=== PATIENT | male | born 1950 | race Native Hawaiian/Other Pacific Islander ===

== ENCOUNTER 2018-11-30 04:54 | Emergency (ER) | payer MEDICARE ==
[2018-11-30 05:04] VITALS: BP 148/84; PULSE 59; RESP 16; TEMP 98.2
[2018-11-30] MEDS ORDERED: HYDROcodone/APAP 7.5-325MG 1 EACH TAB PO ONE (05:34)
[2018-11-30] MEDS ORDERED: AMOXIC-POT CLAV 875-125MG 1 EACH TAB PO STA (05:34)
[2018-11-30] MEDS ORDERED: IBUPROFEN 600 MG TAB PO STA (05:35)
[2018-11-30 06:15] LABS: Basophils # (A) 0.1 k/uL (0-0.2); Basophils % (A) 1 %; Eosinophils # (A) 0.3 k/uL (0-0.7); Eosinophils % (A) 2 %; HGB 14.6 gm/dL (13.0-17.5); Lymphocytes % (A) 9 %; MCH 33.4 pg (25.0-35.0); MCHC 32.5 g/dL (31.0-37.0); MCV 102.6 fL (80.0-100.0); Macrocytosis Slight; Monocytes # (A) 0.5 k/uL (0-1.0); Monocytes % (A) 5 %; Neutrophils # (A) 9.2 k/uL (1.3-7.7); Neutrophils % (A) 82 %; Platelet Count 245 k/uL (150-450); RBC 4.38 m/uL (4.30-5.90); RDW 12.7 % (11.5-15.5); WBC 11.2 k/uL (3.8-10.6)
[2018-11-30 06:25] LABS: Anion Gap 7 mmol/L; Blood Urea Nitrogen 16 mg/dL (9-20); Calcium 8.9 mg/dL (8.4-10.2); Carbon Dioxide 25 mmol/L (22-30); Chloride 110 mmol/L (98-107); Glucose 100 mg/dL (74-99); Potassium 4.2 mmol/L (3.5-5.1); Sodium 142 mmol/L (137-145)
--- NOTE | 2018-11-30 07:04 | CT ---
EXAM: CT Neck With Intravenous Contrast CLINICAL HISTORY: ITS.REASON CT Reason: Pain, abscess TECHNIQUE: Axial computed tomography images of the neck with intravenous contrast. CTDI is 5 mGy and DLP is 181 mGy-cm. This CT exam was performed using one or more of the following dose reduction techniques: automated exposure control, adjustment of the mA and/or kV according to patient size, and/or use of iterative reconstruction technique. COMPARISON: No relevant prior studies available. FINDINGS: 2.4 cm fluid collection overlying the left mandibular third molar which has periapical lucency and dehiscence overlying the outer cortex leading into this fluid collection. No tonsillar enlargement. Epiglottis is unremarkable. Aerodigestive tract is patent. No acute fracture. Upper lungs are unremarkable. IMPRESSION: Evidence of subperiosteal abscess overlying the left mandibular third molar which has underlying odontogenic disease.
[2018-11-30] MEDS ORDERED: LIDOCAINE 1% INJ 10MG/ML (20 ML MDV) SQ ONE (07:20)
--- NOTE | 2018-11-30 08:08 | ED ---
ENT HPI - General Chief complaint: Dental/Oral Stated complaint: Abcess Tooth Time Seen by Provider: 11/30/18 05:30 Source: patient, EMS Mode of arrival: EMS Limitations: no limitations - History of Present Illness Initial comments: This patient is 68-year-old man who presents to be evaluate for left mandible pain and swelling. The patient reports that he had onset of a toothache nearly one week ago. After a couple of days he also started developing swelling. He states that he attempted to see a dentist but they were not able to do anything because the amount of swelling he was having. He was started on antibiotic which she has taken for 3 days. He has had worsening despite this. He does not complain of any submandibular pain or swelling. No neck pain or swelling. He has not had systemic symptoms, no fever or chills, no chest pain, dyspnea or palpitations. MD complaint: tooth pain -: days(s) Severity: severe Quality: aching Consistency: constant Improves with: none Worsens with: eating Context- Dental: history of dental caries Associated Symptoms: gum swelling, toothache - Related Data Previous Rx's Medication Instructions Recorded Amoxicillin/Potassium Clav 1 tab PO Q12HR #14 tab 11/30/18 [Augmentin 875-125 Tablet] Hydrocodone/Acetaminophen [[place] 1 each PO Q6HR PRN #20 tab 11/30/18 5-325] Allergies Allergy/AdvReac Type Severity Reaction Status Date / Time No Known Allergies Allergy Verified 11/30/18 07:17 Review of Systems ROS Statement: Those systems with pertinent positive or pertinent negative responses have been documented in the HPI. ROS Other: All systems not noted in ROS Statement are negative. Constitutional: Denies: fever, chills, weakness ENT: Reports: dental pain. Denies: throat pain Respiratory: Denies: cough, dyspnea Cardiovascular: Denies: chest pain, palpitations, syncope Skin: Denies: rash Neurological: Denies: headache, weakness Past Medical History Past Medical History: No Reported History History of Any Multi-Drug Resistant Organisms: None Reported Past Surgical History: Hernia Repair Additional Past Surgical History / Comment(s): open reduction of right ankle fracture. Past Psychological History: No Psychological Hx Reported Smoking Status: Never smoker Past Alcohol Use History: None Reported Past Drug Use History: None Reported General Exam Limitations: no limitations General appearance: alert, in no apparent distress Head exam: Present: atraumatic, normocephalic Eye exam: Present: normal appearance, PERRL, EOMI. Absent: scleral icterus, conjunctival injection, periorbital swelling, periorbital tenderness ENT exam: Present: mucous membranes moist, other (Patient has moderate amount of swelling adjacent to the left side of the mandible. No sublingual or neck tenderness or swelling. Inspection REVEALS caries to the left posterior molar.) Neck exam: Present: normal inspection, full ROM. Absent: tenderness, meningismus, lymphadenopathy Respiratory exam: Present: normal lung sounds bilaterally. Absent: respiratory distress, wheezes, rales, rhonchi, stridor Cardiovascular Exam: Present: regular rate, normal rhythm, normal heart sounds. Absent: systolic murmur, diastolic murmur, rubs, gallop Back exam: Present: normal inspection. Absent: CVA tenderness (R), CVA tenderness (L) Neurological exam: Present: alert Skin exam: Present: warm, dry, intact, normal color. Absent: rash Course Vital Signs 11/30/18 05:00 Temperature 98.2 F Pulse Rate 59 L Respiratory 16 Rate Blood Pressure 148/84 O2 Sat by Pulse 97 Oximetry Medical Decision Making - Medical Decision Making Patient's 68-year-old man with left mandibular pain and what appears to be developing dental abscess. Given the degree of mandibular swelling also checked a computed tomography scan to rule out evidence of developing Quique's angina. We are not seeing any of that currently. After discussion of risks, benefits, and indications, patient does give verbal consent to have I&D of the dental abscess. I performed a mandibular block using 1 mL of 1% lidocaine without epinephrine. I also did inject a small amount at the apex of the abscess. Following that a small stab incision was made with #11 scalpel with resulting in drainage of purulent material as well as small amount of blood. I did apply a small amount of pressure to milk further pus from the abscess, following this patient instructed to swish and spit with saline. Appropriate further care and follow-up discussed was return parameters. - Lab Data Result diagrams: 11/30/18 05:47 11/30/18 05:47 Lab Results 11/30/18 11/30/18 Range/Units 05:47 05:47 WBC 11.2 H (3.8-10.6) k/uL RBC 4.38 (4.30-5.90) m/uL Hgb 14.6 (13.0-17.5) gm/dL Hct 45.0 (39.0-53.0) % MCV 102.6 H (80.0-100.0) fL MCH 33.4 (25.0-35.0) pg MCHC 32.5 (31.0-37.0) g/dL RDW 12.7 (11.5-15.5) % Plt Count 245 (150-450) k/uL Neutrophils % 82 % Lymphocytes % 9 % Monocytes % 5 % Eosinophils % 2 % Basophils % 1 % Neutrophils # 9.2 H (1.3-7.7) k/uL Lymphocytes # 1.0 (1.0-4.8) k/uL Monocytes # 0.5 (0-1.0) k/uL Eosinophils # 0.3 (0-0.7) k/uL Basophils # 0.1 (0-0.2) k/uL Macrocytosis Slight Sodium 142 (137-145) mmol/L Potassium 4.2 (3.5-5.1) mmol/L Chloride 110 H (98-107) mmol/L Carbon Dioxide 25 (22-30) mmol/L Anion Gap 7 mmol/L BUN 16 (9-20) mg/dL Creatinine 0.84 (0.66-1.25) mg/dL Est GFR (CKD-EPI)AfAm >90 (>60 ml/min/1.73 sqM) Est GFR (CKD-EPI)NonAf 89 (>60 ml/min/1.73 sqM) Glucose 100 H (74-99) mg/dL Calcium 8.9 (8.4-10.2) mg/dL Disposition Clinical Impression: Dental abscess Disposition: HOME SELF-CARE Condition: Fair Instructions (If sedation given, give patient instructions): Dental Abscess (ED ) Prescriptions: Amoxicillin/Potassium Clav [Augmentin 875-125 Tablet] 1 tab PO Q12HR #14 tab Hydrocodone/Acetaminophen [[place] 5-325] 1 each PO Q6HR PRN #20 tab PRN Reason: Pain Is patient prescribed a controlled substance at d/c from ED?: No Referrals: None,Stated [Primary Care Provider] - 1-2 days Kenny Mosley DDS [STAFF PHYSICIAN] - 1-2 days
== END 2018-11-30 08:29 | disposition home or self-care (01) ==
LOC: EC 04:54
DX: K04.7 Periapical abscess without sinus (principal)
CPT/HCPCS: 36415; 80048; 85025; 70491; 99284; 41800; J2001; Q9967

== ENCOUNTER 2020-05-19 10:09 | Emergency (ER) | payer MEDICARE ==
[2020-05-19 10:24] VITALS: BP 124/74; PULSE 64; RESP 18; TEMP 98.3
[2020-05-19] MEDS ORDERED: AMOXIC-POT CLAV 875MG STARTER PACK 2 TAB BTL PO STA (10:29)
[2020-05-19] MEDS ORDERED: ACET/COD 300 MG/30 MG STARTER PACK 6 TAB BTL PO STA (10:29)
--- NOTE | 2020-05-19 10:30 | ED ---
ENT HPI - General Chief complaint: Dental/Oral Stated complaint: dental pain Time Seen by Provider: 05/19/20 10:25 Source: patient Mode of arrival: ambulatory Limitations: no limitations - History of Present Illness Initial comments: 30-year-old male presenting for left lower dental pain. Patient states he has had a cracked tooth and is beginning to hurt. Patient denies any facial swelling Syble Tung T bruising or swelling denies chills general malaise or fevers. Patient states he does not currently have a primary care provider and does not know to do straight came to the emergency department. Patient is no additional complaints he appears well on arrival nontoxic in no acute distress. Very pleasant. - Related Data Previous Rx's Medication Instructions Recorded Amoxicillin/Potassium Clav 1 tab PO Q12HR #14 tab 11/30/18 [Augmentin 875-125 Tablet] Hydrocodone/Acetaminophen [[place] 1 each PO Q6HR PRN #20 tab 11/30/18 5-325] Amoxicillin/Potassium Clav 1 tab PO Q12HR 7 Days #14 tab 05/19/20 [Augmentin 875-125 Tablet] Allergies Allergy/AdvReac Type Severity Reaction Status Date / Time No Known Allergies Allergy Verified 11/30/18 07:17 Review of Systems ROS Statement: Those systems with pertinent positive or pertinent negative responses have been documented in the HPI. ROS Other: All systems not noted in ROS Statement are negative. Past Medical History Past Medical History: No Reported History History of Any Multi-Drug Resistant Organisms: None Reported Past Surgical History: Hernia Repair Additional Past Surgical History / Comment(s): open reduction of right ankle fracture. Past Psychological History: No Psychological Hx Reported Smoking Status: Never smoker Past Alcohol Use History: None Reported Past Drug Use History: None Reported General Exam - General Exam Comments Initial Comments: General: The patient is awake and alert, in no distress, and does not appear acutely ill. Eye: Pupils are equal, round and reactive to light, extra-ocular movements are intact. No nystagmus. There is normal conjunctiva bilaterally. No signs of icterus. Ears, nose, mouth and throat: There are moist mucous membranes and no oral lesions. No swelling of the jaw, face, adjacent mucosa or gingiva. NO swelling below tongue or angle of mandible. cracked tooth #19 Neck: The neck is supple, there is no tenderness or JVD. Musculoskeletal: Normal ROM, no tenderness. Strength 5/5. Sensation intact. Pulses equal bilaterally 2+. Neurological: A&O x 3. CN II-XII intact grossly, There are no obvious motor or sensory deficits. Coordination appears grossly intact. Speech is normal. Skin: Skin is warm and dry and no rashes or lesions are noted. Psychiatric: Cooperative, appropriate mood & affect, normal judgment. Limitations: no limitations Course Vital Signs 05/19/20 10:22 Temperature 98.3 F Pulse Rate 64 Respiratory 18 Rate Blood Pressure 124/74 O2 Sat by Pulse 98 Oximetry Medical Decision Making - Medical Decision Making 70-year-old male presenting today for chief complaint of dental pain cracked tooth. No evidence of abscess. No evidence of Quique's angina. Patient will be discharged with Tylenol 3 and Augmentin he is to follow-up with dentistry discussed a local dentist office in [facility] that is free reduced services. Patient is to follow-up with [facility] patient is agreeable to this care plan discharge at this time. Disposition Clinical Impression: Pain, dental Disposition: HOME SELF-CARE Condition: Good Instructions (If sedation given, give patient instructions): Toothache (ED) Additional Instructions: Please use medication as discussed. Please follow-up with dentist as discussed. Please return to emergency room if the symptoms increase or worsen or for any other concerns. Prescriptions: Amoxicillin/Potassium Clav [Augmentin 875-125 Tablet] 1 tab PO Q12HR 7 Days #14 tab Is patient prescribed a controlled substance at d/c from ED?: No Referrals: None,Stated [Primary Care Provider] - 1-2 days [facility] [NON-STAFF] - 1-2 days Time of Disposition: 10:30
== END 2020-05-19 10:48 | disposition home or self-care (01) ==
LOC: EC 10:09
DX: K08.89 Other specified disorders of teeth and supporting structures (principal); K03.81 Cracked tooth
CPT/HCPCS: 99282

== ENCOUNTER 2020-08-10 11:50 | Emergency (ER) | payer MEDICARE ==
[2020-08-10 11:57] VITALS: RESP 18
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
--- NOTE | 2020-08-10 13:01 | CT ---
EXAMINATION TYPE: CT brain [place] wo con DATE OF EXAM: 08/10/2020 COMPARISON: NONE HISTORY: Fall injury with pain Automated Exposure Control for Dose Reduction was Utilized. TECHNIQUE: CT scan of the head and cervical spine are performed without contrast. FINDINGS: There is no acute intracranial hemorrhage or midline shift identified. Mild ventricular a nd sulcal prominence. The calvarium is intact. Ramos-white matter differentiation is maintained. The globes are intact and the visualized sinuses are clear. Cervical spine is visualized in its entirety from C1 through upper thoracic levels and demonstrates s light levoconvex scoliotic curvature without evidence of acute fracture or dislocation. There is grad e 1 anterolisthesis C3 on C4 Prevertebral soft tissue appears within normal limits. The C1-C2 artic ulation is within normal limits on the coronal images. Vertebral body heights are maintained. Mild t o moderate disc space narrowing and anterior spurring C3-C4 level. Severe disc space narrowing and mo derate spurring C5-C6 level. Moderate disc space narrowing and moderate spurring C6-C7 level. Posteri or spur disc complex effaces the anterior thecal sac at C6-C7 level. Axial images show multilevel unc overtebral facet degenerative changes contributing to multilevel neural foraminal narrowing with find ings noted bilaterally at C3-C4 level. Lung apices show no pneumothorax. IMPRESSION: 1. There is no acute fracture or dislocation evident in the cervical spine. 2. No acute intracranial hemorrhage or midline shift is seen.
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
[2020-08-10] MEDS ORDERED: CYCLOBENZAPRINE 10MG STARTER 3 TAB BTL PO STA (13:39)
[2020-08-10] MEDS ORDERED: IBUPROFEN 600 MG STARTER PACK 4 TAB BTL PO STA (13:39)
[2020-08-10 14:13] VITALS: BP 118/78; PULSE 60; TEMP 98.3
== END 2020-08-10 14:12 | disposition home or self-care (01) ==
LOC: EC 11:50
DX: S46.002A Unspecified injury of muscle(s) and tendon(s) of the rotator cuff of left shoulder, initial encounter (principal); V19.9XXA Pedal cyclist (driver) (passenger) injured in unspecified traffic accident, initial encounter; Y92.480 Sidewalk as the place of occurrence of the external cause; Y93.55 Activity, bike riding
CPT/HCPCS: 70450; 72125; 99284

== ENCOUNTER 2020-11-03 17:50 | Emergency (ER) | payer MEDICARE, OTHER ==
[2020-11-03 17:55] VITALS: BP 160/86; PULSE 63; RESP 18; TEMP 98.4
--- NOTE | 2020-11-03 18:15 | ED ---
Male Urogenital HPI - General Chief complaint: Urogenital Stated complaint: Hernia Time Seen by Provider: 11/03/20 17:56 Source: patient Mode of arrival: ambulatory Limitations: no limitations - History of Present Illness Initial comments: 70-year-old male presents emergency Department with a chief complaint of a hernia. Reports bilateral inguinal hernia repair many years ago but the left one has slowly deteriorated. Patient reports over the last 8 months he has noticed more discomfort in the left side and a bulge. Patient states the bulge is to come and go but now it is consistently staying there. He denies any constipation, nausea or vomiting. He denies any testicular pain or difficulty urinating. - Related Data Home Medications Medication Instructions Recorded Confirmed No Known Home Medications 11/03/20 11/03/20 Allergies Allergy/AdvReac Type Severity Reaction Status Date / Time No Known Allergies Allergy Verified 11/03/20 18:44 Review of Systems ROS Statement: Those systems with pertinent positive or pertinent negative responses have been documented in the HPI. ROS Other: All systems not noted in ROS Statement are negative. Past Medical History Past Medical History: No Reported History History of Any Multi-Drug Resistant Organisms: None Reported Past Surgical History: Hernia Repair Additional Past Surgical History / Comment(s): open reduction of right ankle fracture. Past Psychological History: No Psychological Hx Reported Smoking Status: Current some day smoker Past Alcohol Use History: None Reported Past Drug Use History: None Reported General Exam Limitations: no limitations General appearance: alert, in no apparent distress Head exam: Present: atraumatic, normocephalic, normal inspection Eye exam: Present: normal appearance, PERRL, EOMI Pupils: Present: normal accommodation ENT exam: Present: normal exam, normal oropharynx, mucous membranes moist Neck exam: Present: normal inspection, full ROM. Absent: tenderness Respiratory exam: Present: normal lung sounds bilaterally. Absent: respiratory distress, wheezes, rales, rhonchi, stridor Cardiovascular Exam: Present: regular rate, normal rhythm, normal heart sounds GI/Abdominal exam: Present: soft, tenderness (Mild tenderness), hernia (Large left-sided inguinal hernia). Absent: distended exam: Absent: normal inspection (Large left-sided inguinal hernia) Extremities exam: Present: normal inspection, full ROM, normal capillary refill. Absent: tenderness, pedal edema, joint swelling Back exam: Present: normal inspection, full ROM. Absent: tenderness, CVA tenderness (R), CVA tenderness (L) Neurological exam: Present: alert, oriented X3 Psychiatric exam: Present: normal affect, normal mood Skin exam: Present: warm, dry, intact, normal color Course Vital Signs 11/03/20 17:51 Temperature 98.4 F Pulse Rate 63 Respiratory 18 Rate Blood Pressure 160/86 O2 Sat by Pulse 99 Oximetry Medical Decision Making - Medical Decision Making 70-year-old male presenting to the emergency Department the chief complaint of hernia. On physical examination, patient has left-sided large inguinal hernia. CBC unremarkable. CMP reveals slight elevation of BUN at 22. CT of the abdomen and pelvis with contrast reveals a large left-sided internal hernia with sigmoid colon incarceration. No strangulation. Patient was given morphine and Zofran for discomfort. I was able to reduce the hernia. I contacted regarding this case and will see the patient in his office. Information was discussed with the patient. Return parameters were thoroughly discussed the patient was worsening agreeable. Case discussed with physician. - Lab Data Result diagrams: 11/03/20 18:34 11/03/20 18:34 Lab Results 11/03/20 11/03/20 11/03/20 Range/Units 18:34 18:34 18:34 WBC 8.3 (3.8-10.6) k/uL RBC 4.90 (4.30-5.90) m/uL Hgb 17.1 (13.0-17.5) gm/dL Hct 48.2 (39.0-53.0) % MCV 98.5 (80.0-100.0) fL MCH 34.9 (25.0-35.0) pg MCHC 35.4 (31.0-37.0) g/dL RDW 12.8 (11.5-15.5) % Plt Count 211 (150-450) k/uL MPV 7.3 Neutrophils % 81 % Lymphocytes % 11 % Monocytes % 5 % Eosinophils % 2 % Basophils % 1 % Neutrophils # 6.7 (1.3-7.7) k/uL Lymphocytes # 0.9 L (1.0-4.8) k/uL Monocytes # 0.4 (0-1.0) k/uL Eosinophils # 0.2 (0-0.7) k/uL Basophils # 0.1 (0-0.2) k/uL Sodium 141 (137-145) mmol/L Potassium 4.0 (3.5-5.1) mmol/L Chloride 109 H (98-107) mmol/L Carbon Dioxide 26 (22-30) mmol/L Anion Gap 6 mmol/L BUN 22 H (9-20) mg/dL Creatinine 0.79 (0.66-1.25) mg/dL Est GFR (CKD-EPI)AfAm >90 (>60 ml/min/1.73 sqM) Est GFR (CKD-EPI)NonAf >90 (>60 ml/min/1.73 sqM) Glucose 103 H (74-99) mg/dL Plasma Lactic Acid Jimbo 0.8 (0.7-2.0) mmol/L Calcium 9.3 (8.4-10.2) mg/dL Total Bilirubin 0.5 (0.2-1.3) mg/dL AST 25 (17-59) U/L ALT 19 (4-49) U/L Alkaline Phosphatase 87 (38-126) U/L Total Protein 7.5 (6.3-8.2) g/dL Albumin 4.2 (3.5-5.0) g/dL Disposition Clinical Impression: Reducible left inguinal hernia Disposition: HOME SELF-CARE Condition: Stable Instructions (If sedation given, give patient instructions): Inguinal Hernia (ED) Additional Instructions: Follow-up with . Please return to the Emergency Department if symptoms worsen or any other concerns. Avoid lifting heavy objects, squatting or straining. Is patient prescribed a controlled substance at d/c from ED?: No Referrals: None,Stated [Primary Care Provider] - 1-2 days Sherie Junior DO [Doctor of Osteopathic Medicine] - 1-2 days Time of Disposition: 20:27
[2020-11-03 18:48] LABS: Basophils # (A) 0.1 k/uL (0-0.2); Basophils % (A) 1 %; Eosinophils # (A) 0.2 k/uL (0-0.7); Eosinophils % (A) 2 %; HCT 48.2 % (39.0-53.0); HGB 17.1 gm/dL (13.0-17.5); Lymphocytes # (A) 0.9 k/uL (1.0-4.8); Lymphocytes % (A) 11 %; MCH 34.9 pg (25.0-35.0); MCHC 35.4 g/dL (31.0-37.0); MCV 98.5 fL (80.0-100.0); Mean Platelet Volume 7.3; Monocytes # (A) 0.4 k/uL (0-1.0); Monocytes % (A) 5 %; Neutrophils # (A) 6.7 k/uL (1.3-7.7); Neutrophils % (A) 81 %; Platelet Count 211 k/uL (150-450); RDW 12.8 % (11.5-15.5); WBC 8.3 k/uL (3.8-10.6)
[2020-11-03 18:56] LABS: ALT 19 U/L (4-49); AST 25 U/L (17-59); African American GFR (CKD) >90 (>60 ml/min/1.73 sqM); Albumin 4.2 g/dL (3.5-5.0); Alkaline Phosphatase 87 U/L (38-126); Anion Gap 6 mmol/L; Blood Urea Nitrogen 22 mg/dL (9-20); Calcium 9.3 mg/dL (8.4-10.2); Carbon Dioxide 26 mmol/L (22-30); Chloride 109 mmol/L (98-107); Glucose 103 mg/dL (74-99); Non-African American GFR(CKD) >90 (>60 ml/min/1.73 sqM); Sodium 141 mmol/L (137-145); Total Bilirubin 0.5 mg/dL (0.2-1.3); Total Protein 7.5 g/dL (6.3-8.2)
--- NOTE | 2020-11-03 19:33 | CT ---
EXAMINATION TYPE: CT abdomen pelvis w con DATE OF EXAM: 11/03/2020 COMPARISON: None HISTORY: Left inguinal hernia x6 months. CT DLP: 573.6 mGycm Automated exposure control for dose reduction was used. CONTRAST: Performed with IV Contrast, patient injected with 100ml mL of Isovue 300. Images were obtained from the diaphragm to the floor the pelvis with IV contrast. The lung bases are clear. There is no pleural effusion. Heart size is normal. There is no pericardial effusion. Liver spleen stomach pancreas gallbladder appear intact. Bile ducts are not dilated. There is no adrenal mass. Kidneys show satisfactory contrast opacification. There is no hydronephrosi s. Delayed images show normal renal excretion. There is 2 cm cortical cyst medial right kidney. There are small cortical cysts in the left kidney. There is no retroperitoneal adenopathy. Ureters are not dilated. Bladder distends smoothly. There is large left side inguinal and scrotal hernia that contains incarcerated sigmoid colon. Hernia measures 16 cm in length and 7 cm in diameter. There is 1.7 cm rounded fluid density at the right in guinal ligament that could be small hernia. I do not see evidence for mechanical bowel obstruction. There is no free air. There is no ascites. Th ere is no mesenteric edema. There is normal alignment of the lumbar vertebra. There is moderate L4-5 disc space narrowing. There is no compression fracture. Bony pelvis is intact. The hip joints are intact. IMPRESSION: Large left inguinal and scrotal hernia as above with incarcerated sigmoid colon. No bowel obstruction .
[2020-11-03] MEDS ORDERED: MORPHINE SULFATE 4 MG/ML SYRINGE IVP STA (19:39)
[2020-11-03] MEDS ORDERED: ONDANSETRON 4 MG/2 ML VIAL IVP STA (19:45)
== END 2020-11-03 20:53 | disposition home or self-care (01) ==
LOC: EC 17:50
DX: K40.30 Unilateral inguinal hernia, with obstruction, without gangrene, not specified as recurrent (principal); F17.200 Nicotine dependence, unspecified, uncomplicated
CPT/HCPCS: 36415; 80053; 83605; 85025; 74177; 99284; 96374; 96375; J2270; J2405; Q9967

== ENCOUNTER → 2021-03-24 | Outpatient (CLI) | payer MEDICARE, OTHER ==
--- NOTE | 2021-03-24 12:31 | XR ---
EXAMINATION TYPE: XR shoulder complete BILAT DATE OF EXAM: 03/24/2021 CLINICAL HISTORY: Bilateral shoulder pain TECHNIQUE: Three views of the bilateral shoulder are obtained. COMPARISON: None. FINDINGS: There is no acute fracture/dislocation evident. There are degenerative changes of the bila teral acromioclavicular and glenohumeral joints. The right humeral head is high riding with degenerat ren changes at the pseudoarticulation of the humeral head with the acromion. IMPRESSION: There are degenerative changes of the bilateral acromioclavicular and glenohumeral joints. The right humeral head is high riding with degenerative changes at the pseudoarticulation of the humeral head w ith the acromion.
== END | disposition home or self-care (01) ==
LOC: RADXRMAIN 10:45
PROVIDERS: ATTEND Internal Medicine
DX: M19.011 Primary osteoarthritis, right shoulder (principal); M19.012 Primary osteoarthritis, left shoulder

== ENCOUNTER 2021-10-02 19:55 | Emergency (ER) | payer OTHER ==
[2021-10-02 20:05] VITALS: BP 214/87; PULSE 69; RESP 18; TEMP 98.9
[2021-10-02] MEDS ORDERED: DOXYCYCLINE 100 MG CAP PO STA (20:58)
[2021-10-02] MEDS ORDERED: cefTRIAXone 500 MG VIAL IM ONE (21:15)
--- NOTE | 2021-10-02 22:24 | ED ---
General Adult HPI - General Chief complaint: Recheck/Abnormal Lab/Rx Stated complaint: Wants covid screening,and STD screening Time Seen by Provider: 10/02/21 20:00 Source: patient Mode of arrival: ambulatory Limitations: no limitations - History of Present Illness Initial comments: 71-year-old male presents to the emergency department requesting Covid and STD testing. He states that he had a one night stand and was concerned for STI's as well as Covid after his unprotected intercourse. States that he has no symptoms at this time. Denies any chest pain, shortness of breath, fevers, chills, muscle aches, nausea or vomiting. Denies penile drainage. No dysuria, hematuria or difficulty voiding. No rashes. Denies any testicular pain. No other alleviating, precipitating or modifying factors - Related Data Previous Rx's Medication Instructions Recorded Doxycycline Hyclate 100 mg PO Q12H 1 Days #14 tab 10/02/21 Allergies Allergy/AdvReac Type Severity Reaction Status Date / Time No Known Allergies Allergy Verified 10/02/21 20:05 Review of Systems ROS Statement: Those systems with pertinent positive or pertinent negative responses have been documented in the HPI. ROS Other: All systems not noted in ROS Statement are negative. Past Medical History Past Medical History: No Reported History History of Any Multi-Drug Resistant Organisms: None Reported Past Surgical History: Hernia Repair Additional Past Surgical History / Comment(s): open reduction of right ankle fracture. Past Psychological History: No Psychological Hx Reported Smoking Status: Current some day smoker Past Alcohol Use History: None Reported Past Drug Use History: None Reported General Exam Limitations: no limitations General appearance: alert, in no apparent distress Head exam: Present: atraumatic, normocephalic, normal inspection Eye exam: Present: normal appearance, PERRL, EOMI. Absent: scleral icterus, conjunctival injection, periorbital swelling ENT exam: Present: normal exam, mucous membranes moist Neck exam: Present: normal inspection. Absent: tenderness, meningismus, lymphadenopathy Respiratory exam: Present: normal lung sounds bilaterally. Absent: respiratory distress, wheezes, rales, rhonchi, stridor Cardiovascular Exam: Present: regular rate, normal rhythm, normal heart sounds. Absent: systolic murmur, diastolic murmur, rubs, gallop, clicks GI/Abdominal exam: Present: soft, normal bowel sounds. Absent: distended, tenderness, guarding, rebound, rigid Extremities exam: Present: normal inspection, full ROM, normal capillary refill. Absent: tenderness, pedal edema, joint swelling, calf tenderness Back exam: Present: normal inspection Neurological exam: Present: alert, oriented X3, CN II-XII intact Psychiatric exam: Present: normal affect, normal mood Skin exam: Present: warm, dry, intact, normal color. Absent: rash Course Vital Signs 10/02/21 20:01 Temperature 98.9 F Pulse Rate 69 Respiratory 18 Rate Blood Pressure 214/87 O2 Sat by Pulse 98 Oximetry Medical Decision Making - Medical Decision Making On arrival patient was placed in the hallway 11. A thorough history and p hysical exam was performed. Patient does provide a urine sample. He does opt for treatment for chlamydia and gonorrhea. Given 500 IM injection of Rocephin and days of doxycycline. First dose given in the emergency room. Covid testing is negative. Instructed if he has any symptoms in the next 2 days that he be retested. Also informed that we need to await the results of his STI testing. As the patient has any new or worsening symptoms he should return to the emergency room. Patient agreed to the treatment plan and was discharged home in stable condition - Lab Data Lab Results 10/02/21 10/02/21 10/02/21 Range/Units 21:08 21:40 21:40 Chlamydia Source Urine Chlamydia DNA (PCR) Negative (Neg,Equiv) Coronavirus (PCR) Not Detected (Not Detectd) N. gonorrhoeae Source Urine N.gonorrhoeae DNA Probe Negative (Neg,Equiv) Miscellaneous Test Trichomonas RNA Misc Test Result See Comment Disposition Clinical Impression: Exposure to COVID-19 virus, Unprotected sexual intercourse Disposition: HOME SELF-CARE Condition: Stable Instructions (If sedation given, give patient instructions): Safe Sex (ED) Additional Instructions: We will call you if your results are positive for chlamydia or gonorrhea however you have already been treated. If you request testing for HIV or hepatitis, you need to go to the health Department. Please return for any new or worsening symptoms. Prescriptions: Doxycycline Hyclate 100 mg PO Q12H 1 Days #14 tab Is patient prescribed a controlled substance at d/c from ED?: No Referrals: Elham Sargent MD [Primary Care Provider] - 1-2 days [facility] [NON-STAFF] - 1-2 days Time of Disposition: 22:22
[2021-10-04 10:46] LABS: C. trachomatis,PCR Negative (Neg,Equiv); Chlamydia trachomatis Source Urine; N. gonorrhoeae,PCR Negative (Neg,Equiv); Neisseria Source Urine
== END 2021-10-02 22:42 | disposition home or self-care (01) ==
LOC: EC 19:55
DX: Z20.822 Contact with and (suspected) exposure to COVID-19 (principal); Z11.3 Encounter for screening for infections with a predominantly sexual mode of transmission; F17.200 Nicotine dependence, unspecified, uncomplicated
CPT/HCPCS: 87491; 87591; 87661; 87635; 99282; 96372; J0696

== ENCOUNTER 2022-01-12 11:14 | Emergency (ER) | payer OTHER ==
[2022-01-12 11:37] VITALS: BP 192/83; PULSE 65; RESP 18; TEMP 98.2
--- NOTE | 2022-01-12 11:57 | ED ---
General Adult HPI - General Chief complaint: Urogenital Stated complaint: STD check Time Seen by Provider: 01/12/22 11:39 Source: patient, RN notes reviewed Mode of arrival: ambulatory Limitations: no limitations - History of Present Illness Initial comments: This a 71-year-old male presents emergency Department with chief complaint of possible STD. Patient states that he had unprotected sex of recent in he just believes he may have something. He states is more psychological. He has no physical symptoms denies having dysuria, urinary discharge, abdominal discomfort. Patient has no history. - Related Data Previous Rx's Medication Instructions Recorded Doxycycline Hyclate 100 mg PO Q12H 1 Days #14 tab 10/02/21 Allergies Allergy/AdvReac Type Severity Reaction Status Date / Time No Known Allergies Allergy Verified 01/12/22 11:37 Review of Systems ROS Statement: Those systems with pertinent positive or pertinent negative responses have been documented in the HPI. ROS Other: All systems not noted in ROS Statement are negative. Past Medical History Past Medical History: No Reported History History of Any Multi-Drug Resistant Organisms: None Reported Past Surgical History: Hernia Repair Additional Past Surgical History / Comment(s): open reduction of right ankle fracture. Past Psychological History: No Psychological Hx Reported Smoking Status: Current some day smoker Past Alcohol Use History: None Reported Past Drug Use History: None Reported General Exam Limitations: no limitations General appearance: alert, in no apparent distress Head exam: Present: atraumatic, normocephalic, normal inspection Respiratory exam: Present: normal lung sounds bilaterally. Absent: respiratory distress, wheezes, rales, rhonchi, stridor Cardiovascular Exam: Present: regular rate, normal rhythm, normal heart sounds. Absent: systolic murmur, diastolic murmur, rubs, gallop, clicks GI/Abdominal exam: Present: soft, normal bowel sounds. Absent: distended, tenderness, guarding, rebound, rigid Course Vital Signs 01/12/22 11:34 Temperature 98.2 F Pulse Rate 65 Respiratory 18 Rate Blood Pressure 192/83 O2 Sat by Pulse 98 Oximetry Medical Decision Making - Medical Decision Making [id number] presented for concerns for STD. Patient did have urinalysis which was unremarkable. Patient we notified of any positive results for his chlamydia, Trichomonas, gonorrhea. - Lab Data Lab Results 01/12/22 Range/Units 11:55 Urine Color Light Yellow Urine Appearance Clear (Clear) Urine pH 7.5 (5.0-8.0) Ur Specific [place] 1.014 (1.001-1.035) Urine Protein Negative (Negative) Urine Glucose (UA) Negative (Negative) Urine Ketones Negative (Negative) Urine Blood Negative (Negative) Urine Nitrite Negative (Negative) Urine Bilirubin Negative (Negative) Urine Urobilinogen <2.0 (<2.0) mg/dL Ur Leukocyte Esterase Negative (Negative) Disposition Clinical Impression: Concern about STD in male without diagnosis Disposition: HOME SELF-CARE Condition: Stable Instructions (If sedation given, give patient instructions): Sexually Transmitted Diseases (ED) Additional Instructions: Please return to the Emergency Department if symptoms worsen or any other concerns. Is patient prescribed a controlled substance at d/c from ED?: No Referrals: Elham Sargent MD [Primary Care Provider] - 1-2 days Time of Disposition: 12:27
[2022-01-12 12:11] LABS: Appearance,Urine Clear (Clear); Bilirubin,Urine Negative (Negative); Blood,Urine Negative (Negative); Color,Urine Light Yellow; Glucose,Urine (UA) Negative (Negative); Ketones,Urine Negative (Negative); Leukocyte Esterase,Urine Negative (Negative); Nitrite,Urine Negative (Negative); PH, Urine 7.5 (5.0-8.0); Protein,Urine Negative (Negative); Specific Gravity,Urine 1.014 (1.001-1.035); Urobilinogen,Urine <2.0 mg/dL (<2.0)
[2022-01-13 13:59] LABS: C. trachomatis,PCR Negative (Neg,Equiv); Chlamydia trachomatis Source Urine
[2022-01-13 14:15] LABS: N. gonorrhoeae,PCR Negative (Neg,Equiv); Neisseria Source Urine
== END 2022-01-12 13:15 | disposition home or self-care (01) ==
LOC: EC 11:14
DX: Z11.3 Encounter for screening for infections with a predominantly sexual mode of transmission (principal); F17.200 Nicotine dependence, unspecified, uncomplicated
CPT/HCPCS: 81003; 87491; 87591; 87661; 99282

== ENCOUNTER 2022-05-08 09:57 | Emergency (ER) | payer OTHER ==
[2022-05-08 10:02] VITALS: BP 136/82; PULSE 57; RESP 18; TEMP 98.2
--- NOTE | 2022-05-08 10:16 | ED ---
Male Urogenital HPI - General Chief complaint: Urogenital Stated complaint: Urogenital Time Seen by Provider: 05/08/22 10:04 Source: patient, RN notes reviewed, old records reviewed Mode of arrival: ambulatory Limitations: no limitations - History of Present Illness Initial comments: This is a well-appearing 72-year-old male presents ambulatory to the emergency room with dysuria for 2 days. Patient states he had a new sexual partner last Wednesday who stated that she may have a sexually transmitted infection. Patient denies any fevers, no abdominal pain, no testicular pain, no penile discharge. He states it may be psychological but he wants to be treated just in case. MD Complaint: dysuria -: days(s) (2) Severity scale (1-10): 0 Consistency: intermittent Worsens with: urination new sexual partner Reports: denies other symptoms - Related Data Sexually active: Yes Previous Rx's Medication Instructions Recorded Doxycycline Hyclate 100 mg PO Q12H 1 Days #14 tab 10/02/21 Allergies Allergy/AdvReac Type Severity Reaction Status Date / Time No Known Allergies Allergy Verified 05/08/22 10:02 Review of Systems ROS Statement: Those systems with pertinent positive or pertinent negative responses have been documented in the HPI. ROS Other: All systems not noted in ROS Statement are negative. Past Medical History Past Medical History: No Reported History History of Any Multi-Drug Resistant Organisms: None Reported Past Surgical History: Hernia Repair Additional Past Surgical History / Comment(s): open reduction of right ankle fracture. Past Psychological History: No Psychological Hx Reported Smoking Status: Current some day smoker Past Alcohol Use History: Occasional Past Drug Use History: None Reported General Exam Limitations: no limitations General appearance: alert, in no apparent distress Head exam: Present: atraumatic Eye exam: Present: PERRL. Absent: scleral icterus, conjunctival injection, per iorbital swelling ENT exam: Present: normal oropharynx, mucous membranes moist Neck exam: Absent: meningismus Respiratory exam: Present: normal lung sounds bilaterally. Absent: respiratory distress, accessory muscle use Cardiovascular Exam: Present: bradycardia GI/Abdominal exam: Present: soft exam: Present: other (Patient declined genital exam) Extremities exam: Present: normal capillary refill. Absent: pedal edema Neurological exam: Present: alert, oriented X3, normal gait Psychiatric exam: Present: normal affect, normal mood Skin exam: Present: warm, dry, normal color. Absent: cyanosis, diaphoretic, petechiae, pallor Course Vital Signs 05/08/22 09:59 Temperature 98.2 F Pulse Rate 57 L Respiratory 18 Rate Blood Pressure 136/82 O2 Sat by Pulse 96 Oximetry Medical Decision Making - Medical Decision Making Patient presents with 2 days of dysuria. No penile discharge. States symptoms started 2 days ago. He did have unprotected vaginal sex with a new partner last Wednesday who stated she may have an STI. Patient was treated prophylactically as requested for STI exposure. Urinalysis negative for infection. Cultures were sent. Patient was advised to practice safe sex and wear a condom until results are back. Instructed to return to the emergency room with any new or concerning symptoms. Patient's questions were answered and he is agreeable to this plan of care. Case discussed with Dr. Contreras - Lab Data Lab Results 05/08/22 Range/Units 10:22 Urine Color Yellow Urine Appearance Clear (Clear) Urine pH 7.0 (5.0-8.0) Ur Specific [place] 1.014 (1.001-1.035) Urine Protein Negative (Negative) Urine Glucose (UA) Negative (Negative) Urine Ketones Negative (Negative) Urine Blood Negative (Negative) Urine Nitrite Negative (Negative) Urine Bilirubin Negative (Negative) Urine Urobilinogen <2.0 (<2.0) mg/dL Ur Leukocyte Esterase Negative (Negative) Disposition Clinical Impression: Dysuria Disposition: HOME SELF-CARE Condition: Good Instructions (If sedation given, give patient instructions): Sexually Transmitted Diseases (ED), Male Condom Use (ED), Safe Sex Practices (ED) Additional Instructions: Practice safe sex and wear a condom all the time especially until results are back and negative for infection. Return to the emergency room with any new or concerning symptoms. Avoid alcoholic beverages for 3 days after taking Flagyl today to prevent abdominal pain and vomiting. Is patient prescribed a controlled substance at d/c from ED?: No Referrals: Elham Sargent MD [Primary Care Provider] - 1-2 days Time of Disposition: 10:42
[2022-05-08] MEDS ORDERED: AZITHROMYCIN 250 MG TAB PO STA (10:22)
[2022-05-08] MEDS ORDERED: metroNIDAZOLE 500 MG TAB PO STA (10:22)
[2022-05-08] MEDS ORDERED: cefTRIAXone 250 MG VIAL IM STA (10:23)
[2022-05-08] MEDS ORDERED: AZITHROMYCIN 500 MG TAB PO STA (10:28)
[2022-05-08 10:37] LABS: Appearance,Urine Clear (Clear); Bilirubin,Urine Negative (Negative); Blood,Urine Negative (Negative); Color,Urine Yellow; Glucose,Urine (UA) Negative (Negative); Ketones,Urine Negative (Negative); Leukocyte Esterase,Urine Negative (Negative); Nitrite,Urine Negative (Negative); Protein,Urine Negative (Negative); Specific Gravity,Urine 1.014 (1.001-1.035); Urobilinogen,Urine <2.0 mg/dL (<2.0)
== END 2022-05-08 10:44 | disposition home or self-care (01) ==
LOC: EC 09:57
DX: R30.0 Dysuria (principal)
CPT/HCPCS: 87491; 81003; 99283; 96372; J0696

== ENCOUNTER 2022-05-29 11:04 | Observation (INO) | payer MEDICARE, OTHER ==
[2022-05-29] MEDS ORDERED: SODIUM CHLORIDE 0.9% 1,000 ML IV STA (11:50)
[2022-05-29] MEDS ORDERED: MORPHINE SULFATE 4 MG/ML SYRINGE IV STA (11:50)
--- NOTE | 2022-05-29 11:52 | ED ---
General Adult HPI - General Chief complaint: Abdominal Pain Stated complaint: Left side pain Time Seen by Provider: 05/29/22 11:33 Source: patient Mode of arrival: ambulatory Limitations: no limitations - History of Present Illness Initial comments: Dictation was produced using [employer] dictation software. please excuse any grammatical, word or spelling errors. Chief Complaint: 72-year-old male presents to the ER for painful left inguinal hernia History of Present Illness: 72-year-old male he's had several months of known incarcerated left inguinal hernia. Patient has a follow up with general surgeon. He states over the last week or so his pain has been getting significantly worse. He states that his hernia is painful is causing her to be nauseated. Denies any vomiting. Denies any fever or constitutional symptoms. The ROS documented in this emergency department record has been reviewed and confirmed by me. Those systems with pertinent positive or negative responses have been documented in the HPI. All other systems are other negative and/or noncontributory. PHYSICAL EXAM: General Impression: Alert and oriented x3, not in acute distress HEENT: Normocephalic atraumatic, extra-ocular movements intact, pupils equal and reactive to light bilaterally, mucous membranes moist. Cardiovascular: Heart regular rate and rhythm Chest: Able to complete full sentences, no retractions, no tachypnea Abdomen: abdomen soft, non-tender, non-distended, no organomegaly, large left inguinal hernia Musculoskeletal: Pulses present and equal in all extremities, no peripheral edema Motor: no focal deficits noted Neurological: CN II-XII grossly intact, no focal motor or sensory deficits noted Skin: Intact with no visualized rashes Psych: Normal affect and mood ED course: 72-year-old male presents emergency department for incarcerated versus strangulated left inguinal hernia. Vital signs upon arrival are within acceptable limits. Laboratory evaluation obtained. CBC unremarkable. Metabolic panel within acceptable limits. No lactic acidosis. Computed tomography scan shows large inguinal hernia that is incarcerated without any radiologic evidence of strangulation. Patient reevaluated bedside to 30. Did speak with general surgery who saw to accept patients care for admission. Patient started a ntibiotics. - Related Data Home Medications Medication Instructions Recorded Confirmed Atorvastatin [Lipitor] 10 mg PO HS 05/29/22 05/29/22 HYDROcodone/APAP 5-325MG [[place] 1 tab PO DAILY 05/29/22 05/29/22 5-325] traZODone HCL [Desyrel] 50 mg PO HS PRN 05/29/22 05/29/22 Allergies Allergy/AdvReac Type Severity Reaction Status Date / Time No Known Allergies Allergy Verified 05/29/22 13:24 Review of Systems ROS Statement: Those systems with pertinent positive or pertinent negative responses have been documented in the HPI. ROS Other: All systems not noted in ROS Statement are negative. Past Medical History Past Medical History: No Reported History History of Any Multi-Drug Resistant Organisms: None Reported Past Surgical History: Hernia Repair Additional Past Surgical History / Comment(s): open reduction of right ankle fracture. Past Psychological History: No Psychological Hx Reported Smoking Status: Current some day smoker Past Alcohol Use History: Occasional Past Drug Use History: None Reported General Exam Limitations: no limitations Course Vital Signs 05/29/22 11:16 Temperature 97.5 F L Pulse Rate 61 Respiratory 18 Rate Blood Pressure 167/65 O2 Sat by Pulse 96 Oximetry Medical Decision Making - Lab Data Result diagrams: 05/29/22 11:44 05/29/22 11:44 Lab Results 05/29/22 05/29/22 05/29/22 Range/Units 11:44 11:44 11:50 WBC 12.9 H (3.8-10.6) k/uL RBC 4.93 (4.30-5.90) m/uL Hgb 16.6 (13.0-17.5) gm/dL Hct 50.0 (39.0-53.0) % MCV 101.4 H (80.0-100.0) fL MCH 33.7 (25.0-35.0) pg MCHC 33.2 (31.0-37.0) g/dL RDW 12.9 (11.5-15.5) % Plt Count 214 (150-450) k/uL MPV 7.8 Neutrophils % 88 % Lymphocytes % 8 % Monocytes % 3 % Eosinophils % 1 % Basophils % 0 % Neutrophils # 11.3 H (1.3-7.7) k/uL Lymphocytes # 1.0 (1.0-4.8) k/uL Monocytes # 0.4 (0-1.0) k/uL Eosinophils # 0.1 (0-0.7) k/uL Basophils # 0.1 (0-0.2) k/uL Sodium 139 (137-145) mmol/L Potassium 4.1 (3.5-5.1) mmol/L Chloride 102 (98-107) mmol/L Carbon Dioxide 25 (22-30) mmol/L Anion Gap 12 mmol/L BUN 23 H (9-20) mg/dL Creatinine 0.97 (0.66-1.25) mg/dL Est GFR (CKD-EPI)AfAm 90 (>60 ml/min/1.73 sqM) Est GFR (CKD-EPI)NonAf 78 (>60 ml/min/1.73 sqM) Glucose 150 H (74-99) mg/dL Plasma Lactic Acid Jimbo 1.1 (0.7-2.0) mmol/L Calcium 8.9 (8.4-10.2) mg/dL Total Bilirubin 0.8 (0.2-1.3) mg/dL AST 28 (17-59) U/L ALT 12 (4-49) U/L Alkaline Phosphatase 100 (38-126) U/L Total Protein 7.8 (6.3-8.2) g/dL Albumin 4.6 (3.5-5.0) g/dL Lipase 79 (23-300) U/L Disposition Clinical Impression: Incarcerated hernia Disposition: ADMITTED IP TO THIS [facility] Condition: Serious Referrals: Elham Sargent MD [Medical Doctor] - 1-2 days Decision Time: 14:35
[2022-05-29 12:03] LABS: Basophils # (A) 0.1 k/uL (0-0.2); Basophils % (A) 0 %; Eosinophils # (A) 0.1 k/uL (0-0.7); Eosinophils % (A) 1 %; HGB 16.6 gm/dL (13.0-17.5); Lymphocytes % (A) 8 %; MCH 33.7 pg (25.0-35.0); MCHC 33.2 g/dL (31.0-37.0); MCV 101.4 fL (80.0-100.0); Mean Platelet Volume 7.8; Monocytes # (A) 0.4 k/uL (0-1.0); Monocytes % (A) 3 %; Neutrophils # (A) 11.3 k/uL (1.3-7.7); Neutrophils % (A) 88 %; Platelet Count 214 k/uL (150-450); RBC 4.93 m/uL (4.30-5.90); RDW 12.9 % (11.5-15.5); WBC 12.9 k/uL (3.8-10.6)
[2022-05-29 12:13] LABS: Albumin 4.6 g/dL (3.5-5.0); Calcium 8.9 mg/dL (8.4-10.2); Total Bilirubin 0.8 mg/dL (0.2-1.3); Total Protein 7.8 g/dL (6.3-8.2)
[2022-05-29 12:21] LABS: Potassium 4.1 mmol/L (3.5-5.1)
--- NOTE | 2022-05-29 12:58 | CT ---
EXAMINATION TYPE: CT abdomen pelvis w con DATE OF EXAM: 05/29/2022 COMPARISON: 11/03/2020 HISTORY: incarcerated vs. strangulated hernia CT DLP: 691.9 mGycm CONTRAST: CT scan of the abdomen and pelvis is performed without Oral Contrast and with IV Contrast, patient in jected with 100 mL of Isovue 300. FINDINGS: LUNG BASES-: No visible nodule. No infiltrate. LIVER/GB: No calcified gallstones. No space occupying hepatic lesion. Biliary tree is of normal ca liber. PANCREAS: No inflammation. No distinct mass. SPLEEN: No splenic enlargement. No lesion seen. ADRENALS: No nodule. No thickening. KIDNEYS/BLADDER: No hydronephrosis. No nephrolithiasis. No distinct solid renal mass. Urinary blad antonio diverticulum. Renal cystic changes noted remains stable. BOWEL: Normal appendix. Normal bowel caliber. No inflammation. GENITAL ORGANS: No gross abnormality. LYMPH NODES: No greater than 1cm abdominal or pelvic lymph nodes are appreciated. AORTA: No significant abnormality. OSSEOUS STRUCTURES: No significant abnormality is seen. OTHER: Enlarging left scrotal hernia without evidence for strangulation. Hernia currently measures 17 .7 x 8.7 cm versus 14.4 x 6.5 cm previously. Hernia contains portions of the descending colon and sig moid colon. Small hydrocele noted. IMPRESSION: 1. Enlarging left scrotal hernia without evidence for strangulation. Hernia currently measures 17.7 x 8.7 cm versus 14.4 x 6.5 cm previously. Hernia contains portions of the descending colon and sigmoid colon.
[2022-05-29] MEDS ORDERED: PIPERACILLIN-TAZOBACTAM 3.375 GM in SODIUM CHLORIDE 0.9% 100 ML IVPB STA (13:14)
[2022-05-29] MEDS ORDERED: NALOXONE 0.4 MG/ML 1 ML VIAL IV PRN (14:35)
--- NOTE | 2022-05-29 14:59 | P.GSHP ---
History of Present Illness H&P Date: 05/29/22 Chief Complaint: incarcerated left inguinal hernia is a 72-year-old male who has a chronic incarcerated left inguinal hernia. Patient states he has had a hernia for over 20 years. Patient noticed an increase in size of his hernia. He presepresented to the emergency roomum. Patient has a large incarcerated inguinal left inguinal hernia there is no sign of obstruction or straining ablation. On CAT scan.patient denies any nausea or vomiting. He previously resting comfortably in bed. Past Medical History Past Medical History: No Reported History History of Any Multi-Drug Resistant Organisms: None Reported Past Surgical History: Hernia Repair Additional Past Surgical History / Comment(s): open reduction of right ankle fracture. Past Psychological History: No Psychological Hx Reported Smoking Status: Current some day smoker Past Alcohol Use History: Occasional Past Drug Use History: None Reported Medications and Allergies Home Medications Medication Instructions Recorded Confirmed Type Atorvastatin [Lipitor] 10 mg PO HS 05/29/22 05/29/22 History HYDROcodone/APAP 5-325MG [[place] 1 tab PO DAILY 05/29/22 05/29/22 History 5-325] traZODone HCL [Desyrel] 50 mg PO HS PRN 05/29/22 05/29/22 History Allergies Allergy/AdvReac Type Severity Reaction Status Date / Time No Known Allergies Allergy Verified 05/29/22 13:24 Surgical - Exam Vital Signs Temp Pulse Resp BP Pulse Ox 97.5 F L 61 18 167/65 96 05/29/22 11:16 05/29/22 11:16 05/29/22 11:16 05/29/22 11:16 05/29/22 11:16 - General well developed, well nourished, no distress - Eyes PERRL - ENT normal pinna - Neck no masses - Respiratory normal expansion - Cardiovascular Rhythm: regular - Abdomen Abdomen: soft, non tender Hernia: inguinal (large incarcerated left inguinal hernia with scrotal involve ment) Results - Labs 05/29/22 11:44 05/29/22 11:44 Abnormal Lab Results - Last 24 Hours (Table) 05/29/22 05/29/22 Range/Units 11:44 11:44 WBC 12.9 H (3.8-10.6) k/uL MCV 101.4 H (80.0-100.0) fL Neutrophils # 11.3 H (1.3-7.7) k/uL BUN 23 H (9-20) mg/dL Glucose 150 H (74-99) mg/dL Diabetes panel 05/29/22 Range/Units 11:44 Sodium 139 (137-145) mmol/L Potassium 4.1 (3.5-5.1) mmol/L Chloride 102 (98-107) mmol/L Carbon Dioxide 25 (22-30) mmol/L BUN 23 H (9-20) mg/dL Creatinine 0.97 (0.66-1.25) mg/dL Glucose 150 H (74-99) mg/dL Calcium 8.9 (8.4-10.2) mg/dL AST 28 (17-59) U/L ALT 12 (4-49) U/L Alkaline Phosphatase 100 (38-126) U/L Total Protein 7.8 (6.3-8.2) g/dL Albumin 4.6 (3.5-5.0) g/dL Calcium panel 05/29/22 Range/Units 11:44 Calcium 8.9 (8.4-10.2) mg/dL Albumin 4.6 (3.5-5.0) g/dL Pituitary panel 05/29/22 Range/Units 11:44 Sodium 139 (137-145) mmol/L Potassium 4.1 (3.5-5.1) mmol/L Chloride 102 (98-107) mmol/L Carbon Dioxide 25 (22-30) mmol/L BUN 23 H (9-20) mg/dL Creatinine 0.97 (0.66-1.25) mg/dL Glucose 150 H (74-99) mg/dL Calcium 8.9 (8.4-10.2) mg/dL Adrenal panel 05/29/22 Range/Units 11:44 Sodium 139 (137-145) mmol/L Potassium 4.1 (3.5-5.1) mmol/L Chloride 102 (98-107) mmol/L Carbon Dioxide 25 (22-30) mmol/L BUN 23 H (9-20) mg/dL Creatinine 0.97 (0.66-1.25) mg/dL Glucose 150 H (74-99) mg/dL Calcium 8.9 (8.4-10.2) mg/dL Total Bilirubin 0.8 (0.2-1.3) mg/dL AST 28 (17-59) U/L ALT 12 (4-49) U/L Alkaline Phosphatase 100 (38-126) U/L Total Protein 7.8 (6.3-8.2) g/dL Albumin 4.6 (3.5-5.0) g/dL Assessment and Plan Assessment: large incarcerated left inguinal hernia. There is no evidence of any strangulation or acute abdomen. Patient will be treated for pain issues. We will plan for elective repair of this hernia.
[2022-05-29] MEDS: SODIUM CHLORIDE 0.9% 1,000 ML IV SCH (15:12)
[2022-05-29] MEDS: HYDROmorphone 0.5 MG/0.5 ML SYRINGE IVP PRN ×2 (17:50→21:53)
[2022-05-29] MEDS ORDERED: DEXAMETHASONE SOD PHOSPHATE 4 MG/ML 1 ML VIAL IV ONE ×2 (22:53→22:54)
[2022-05-29] MEDS ORDERED: ONDANSETRON 4 MG/2 ML VIAL IVP ONE ×2 (22:53→22:54)
[2022-05-29] MEDS ORDERED: LACTATED RINGERS 1,000 ML IV SCH ×2 (23:00)
[2022-05-30] MEDS: HYDROmorphone 0.5 MG/0.5 ML SYRINGE IVP PRN ×5 (02:43→20:28)
[2022-05-30] MEDS: SODIUM CHLORIDE 0.9% 1,000 ML IV SCH ×2 (02:46→17:02)
[2022-05-30] MEDS ORDERED: HYDROmorphone 0.5 MG/0.5 ML SYRINGE IVP PRN (07:00)
--- NOTE | 2022-05-30 09:27 | P.PN ---
Progress Note - Text Progress Note Date: 05/30/22 Patient feels slightly better today. He does have some mild left lower quadrant/inguinal pain. He is tolerating his diet without any nausea vomiting or significant abdominal pain when he eats. On exam vessels are still. Large left chronically incarcerated inguinal hernia Patient will undergo operative repair on Wednesday.
[2022-05-30] MEDS: ATORVASTATIN 10 MG TAB PO SCH ×2 (20:27→20:31)
[2022-05-30] MEDS: traZODone HCL 50 MG TAB PO PRN (20:31)
[2022-05-31] MEDS: HYDROmorphone 0.5 MG/0.5 ML SYRINGE IVP PRN ×4 (03:46→19:27)
[2022-05-31] MEDS: SODIUM CHLORIDE 0.9% 1,000 ML IV SCH ×2 (03:46→19:25)
--- NOTE | 2022-05-31 18:21 | P.CONS ---
History of Present Illness - Reason for Consult Consult date: 05/31/22 Medical management - Chief Complaint Incarcerated left inguinal hernia - History of Present Illness 72-year-old male who has a chronic incarcerated left inguinal hernia. Patient states he has had a hernia for over 20 years. Patient noticed an increase in size of his hernia. He presepresented to the emergency roomum. Patient has a large incarcerated inguinal left inguinal hernia there is no sign of obstruction or straining ablation. On CAT scan.patient denies any nausea or vomiting. He p reviously resting comfortably in bed. Patient is scheduled for hernia repair tomorrow morning; hospitalist services consulted for medical management Review of Systems REVIEW OF SYSTEMS: CONSTITUTIONAL: No fever, no malaise, no fatigue. HEENT: No recent visual problems or hearing problems. Denied any sore throat. CARDIOVASCULAR: No chest pain, orthopnea, PND, no palpitations, no syncope. PULMONARY: No shortness of breath, no cough, no hemoptysis. GASTROINTESTINAL: No diarrhea, no nausea, no vomiting, no abdominal pain. NEUROLOGICAL: No headaches, no weakness, no numbness. HEMATOLOGICAL: Denies any bleeding or petechiae. GENITOURINARY: Denies any burning micturition, frequency, or urgency. MUSCULOSKELETAL/RHEUMATOLOGICAL: Denies any joint pain, swelling, or any muscle pain. ENDOCRINE: Denies any polyuria or polydipsia. The rest of the 14-point review of systems is negative. Past Medical History Past Medical History: No Reported History History of Any Multi-Drug Resistant Organisms: None Reported Past Surgical History: Hernia Repair Additional Past Surgical History / Comment(s): open reduction of right ankle fracture. Past Psychological History: No Psychological Hx Reported Smoking Status: Current some day smoker Past Alcohol Use History: Occasional Past Drug Use History: None Reported Medications and Allergies Home Medications Medication Instructions Recorded Confirmed Type Atorvastatin [Lipitor] 10 mg PO HS 05/29/22 05/29/22 History HYDROcodone/APAP 5-325MG [[place] 1 tab PO DAILY 05/29/22 05/29/22 History 5-325] traZODone HCL [Desyrel] 50 mg PO HS PRN 05/29/22 05/29/22 History Allergies Allergy/AdvReac Type Severity Reaction Status Date / Time No Known Allergies Allergy Verified 05/29/22 13:24 Physical Exam Vitals: Vital Signs Temp Pulse Resp BP Pulse Ox 05/31/22 08:19 18 05/31/22 07:40 97.9 F 52 L 18 163/80 97 05/31/22 02:27 97.5 F L 56 L 18 148/80 97 05/30/22 20:00 18 05/30/22 19:25 98.5 F 53 L 16 169/76 96 05/30/22 15:09 98.9 F 52 L 18 167/84 96 Intake and Output 05/30/22 05/31/22 05/31/22 22:59 06:59 14:59 Intake Total 240 Output Total 380 350 780 Balance -140 -350 -780 Intake: Oral 240 Output: Urine 380 350 780 Other: Voiding Method Toilet Toilet # Voids 2 PHYSICAL EXAMINATION: GENERAL: The patient is alert and oriented x3, not in any acute distress. Well developed, well nourished. HEENT: Pupils are round and equally reacting to light. EOMI. No scleral icterus. No conjunctival pallor. Normocephalic, atraumatic. No pharyngeal erythema. No thyromegaly. CARDIOVASCULAR: S1 and S2 present. No murmurs, rubs, or gallops. PULMONARY: Chest is clear to auscultation, no wheezing or crackles. ABDOMEN: Soft, nontender, nondistended, normoactive bowel sounds. No palpable organomegaly. MUSCULOSKELETAL: No joint swelling or deformity. EXTREMITIES: No cyanosis, clubbing, or pedal edema. NEUROLOGICAL: Gross neurological examination did not reveal any focal deficits. SKIN: No rashes. Results CBC & Chem 7: 05/29/22 11:44 05/29/22 11:44 Assessment and Plan Assessment: 1. Left incarcerated inguinal hernia - Patient remains on IV fluids; reports adequate pain control - Scheduled for hernia repair tomorrow morning 2. Hyperlipidemia; continue home statin therapy 3. Hyperglycemia; no history of diabetes - We will monitor Accu-Cheks before meals and at bedtime and make recommendations accordingly 4. Insomnia; continue with home dose of trazodone DVT prophylaxis; SCDs only related to her upcoming surgery CODE STATUS; full code
[2022-06-01] MEDS ORDERED: ONDANSETRON 4 MG/2 ML VIAL IVP ONE (07:00)
[2022-06-01] MEDS: DEXAMETHASONE SOD PHOSPHATE 4 MG/ML 1 ML VIAL IV ONE ×2 (07:52→14:02)
[2022-06-01] MEDS: HYDROmorphone 0.5 MG/0.5 ML SYRINGE IVP PRN ×6 (07:53→20:32)
[2022-06-01] MEDS: SODIUM CHLORIDE 0.9% 1,000 ML IV SCH ×2 (13:18→20:32)
[2022-06-01] MEDS: LACTATED RINGERS 1,000 ML IV SCH ×3 (13:19→14:16)
[2022-06-01] MEDS ORDERED: ONDANSETRON 4 MG/2 ML VIAL ONE (13:50)
[2022-06-01] MEDS ORDERED: HEPARIN SODIUM,PORCINE 5,000 UNIT/ML 1 ML VIAL SQ ONE (14:02)
[2022-06-01] MEDS ORDERED: BUPIVACAINE (PF) 0.25% 30 ML VIAL SQ ONE ×2 (14:05→15:05)
[2022-06-01] MEDS ORDERED: MIDAZOLAM 2 MG/2 ML VIAL ONE (14:14)
[2022-06-01] MEDS ORDERED: fentaNYL (PF) 50 MCG/ML 2 ML AMP ONE (14:14)
[2022-06-01] MEDS ORDERED: LIDOCAINE 2% INJ 20 MG/ML (2 ML VIAL) ONE (14:14)
[2022-06-01] MEDS ORDERED: NEOSTIGMINE 1 MG/ML 10 ML VIAL ONE (14:14)
[2022-06-01] MEDS ORDERED: ROCURONIUM 10 MG/ML (5 ML VIAL) IV ONE (14:14)
[2022-06-01] MEDS ORDERED: PROPOFOL 10 MG/ML 20 ML VIAL IV ONE (14:14)
[2022-06-01] MEDS ORDERED: GLYCOPYRROLATE 0.2 MG/ML 2 ML VIAL ONE (14:14)
[2022-06-01] MEDS ORDERED: SUCCINYLCHOLINE CHLORIDE 200 MG/10 ML VIAL IV ONE (14:14)
[2022-06-01] MEDS ORDERED: DEXTROSE 50% SYRINGE 50 ML IVP PRN ×2 (14:45)
--- NOTE | 2022-06-01 15:04 | P.PN ---
Subjective Progress Note Date: 06/01/22 Principal diagnosis: This is a 72-year-old gentleman admitted with incarcerated left inguinal hernia and multiple other medical issues, scheduled for surgical repair today. Reports significant pain mid epigastric to left lower quadrant, minimal right lower quadrant pain. Continues on IV fluids and IV Dilaudid for pain management as per surgery. Reports "light BMs". Denies chest pain, palpitations or shortness of breath. Maintaining O2 sats in the high 90s on room air. Objective - Vital Signs Vital signs: Vital Signs Temp 97.8 F 06/01/22 07:00 Pulse 64 06/01/22 13:47 Resp 16 06/01/22 13:47 BP 168/85 06/01/22 13:47 Pulse Ox 98 06/01/22 13:47 FiO2 Intake & Output 05/31/22 06/01/22 06/01/22 18:59 06:59 18:59 Intake Total 240 0 100 Output Total 1500 Balance -1260 0 100 Intake: IV 100 Oral 240 0 Output: Urine 1500 Other: Voiding Method Toilet Toilet Toilet # Voids 2 - Exam PHYSICAL EXAM: VITAL SIGNS: As above GENERAL: Sitting up in bed, no acute distress HEENT: Conjunctivae normal. eyes normal. MMM. NECK: Supple, No JVD. CARDIOVASCULAR: S1, S2 regular, bradycardic, No murmur RESPIRATION: Breath sounds diminished in the bases. No rhonchi or crackles. No bronchial breathing. ABDOMEN: Soft, nondistended, mid epigastric/left lower quadrant tenderness .Bowel sounds heard. LEGS: No edema. no swelling PSYCHIATRY: Alert and oriented X3, mood and affect normal. NERVOUS SYSTEM: Cranial N 2-12 grossly normal. Moves all 4 limbs.No focal deficits. Strength and sensation grossly intact. Skin: Warm and dry, no rash - Labs CBC & Chem 7: 05/29/22 11:44 05/29/22 11:44 Assessment and Plan Assessment: Left incarcerated inguinal hernia Pain management, O.P. pain contract with Dr. Celestin Hypertension Hyperglycemia-hemoglobin A1c pending Plan: Continue on current medication regime ,monitoring and symptomatic treatment. Hemoglobin A1c ordered, NovoLog sliding scale. Close monitoring of Accu-Cheks. Pain management as per surgery. IV fluid hydration. OR pending. The impression and plan of care has been dictated as directed. : I performed a history and examination of this patient, discussed the same with the dictator. I agree with the dictator's note ,documented as a scribe. Any additional findings or plans will be noted.
--- NOTE | 2022-06-01 15:11 | P.OP ---
Date of Procedure: 06/01/22 Preoperative Diagnosis: Incarcerated left inguinal hernia Postoperative Diagnosis: Incarcerated left inguinal hernia with scrotal involvement Procedure(s) Performed: Open repair of left inguinal hernia Left orchiectomy Anesthesia: TRE Surgeon: Moisés Couch Estimated Blood Loss (ml): 25 Pathology: other (Testicle) Condition: stable Disposition: PACU Description of Procedure: The patient's placed on the operating table in the supine position. He received general endotracheal anesthesia. His left abdomen and scrotum were prepped and draped usual fashion. Patient had a very large left inguinal hernia with scrotal involvement. The entire sigmoid colon appeared to be in the hernia. There was a scar from previous hernia repair. The skin was incised in the left groin standard fashion using subcu using left cautery subcutaneous tissues were divided. The hernia was dissected free from the scrotum and brought up into the wound. The patient had a massive hernia. The testicle was dissected free from the hernia sac. Due to the large size of the hernia was decided perform an orchiectomy. This was performed by ligating the cord structures with a Gloira clamp and then suture ligating the cord with 0 silk suture. The cord was transected sent to pathology. The hernia sac was opened the colon appeared viable. The colon was reduced back into the pleural cavity. The hernia defect was then visualized. It measured approximately 10 cm in diameter. Due to the previous hernia. There is extensive scarring in the area. It was decided to close the area using 0 Ethibond interrupted. Sutures. Once the hernia was closed Fidel's fascia closed with 2-0 Vicryl. The skin was closed danilo. Patient top she will was sent to recovery room in stable condition.
[2022-06-01] MEDS ORDERED: KETOROLAC 15 MG/ML 1 ML VIAL IVP ONE ×2 (15:25→15:27)
[2022-06-01] MEDS ORDERED: HYDROmorphone 0.5 MG/0.5 ML SYRINGE IVP ONE (15:28)
[2022-06-01] MEDS ORDERED: SODIUM CHLORIDE 0.9% 1,000 ML IV ONE (15:30)
[2022-06-01] MEDS ORDERED: fentaNYL (PF) 50 MCG/ML 2 ML AMP IVP ONE (15:59)
[2022-06-01] MEDS ORDERED: hydrALAZINE HCL 20 MG/ML 1 ML VIAL IVP ONE ×2 (16:12→16:35)
[2022-06-01] MEDS: PANTOPRAZOLE 40 MG/10 ML VIAL IVP SCH (17:34)
[2022-06-01] MEDS: INSULIN ASPART (NovoLOG) 100 UNIT/ML VIAL SQ SCH ×2 (17:37→20:37)
[2022-06-01] MEDS: ATORVASTATIN 10 MG TAB PO SCH (20:32)
[2022-06-01 20:37] LABS: Glucose,Whole Blood 137 mg/dL (70-110)
[2022-06-02] MEDS: traZODone HCL 50 MG TAB PO PRN (00:13)
[2022-06-02 03:32] LABS: Glucose,Whole Blood 143 mg/dL (70-110)
[2022-06-02] MEDS: INSULIN ASPART (NovoLOG) 100 UNIT/ML VIAL SQ SCH ×2 (03:46→12:39)
[2022-06-02 07:57] VITALS: BP 119/67; PULSE 61; RESP 17; TEMP 98.4
[2022-06-02] MEDS: HYDROmorphone 0.5 MG/0.5 ML SYRINGE IVP PRN (08:24)
[2022-06-02] MEDS: PANTOPRAZOLE 40 MG/10 ML VIAL IVP SCH (08:24)
[2022-06-02 10:25] LABS: Basophils # (A) 0.02 X 10*3/uL (0.00-0.10); Basophils % (A) 0.2 %; Eosinophils # (A) 0.01 X 10*3/uL (0.04-0.35); Eosinophils % (A) 0.1 %; HCT 40.1 % (39.6-50.0); Immature Grans, Automated 0.4 %; Lymphocytes # (A) 0.95 X 10*3/uL (0.90-5.00); Lymphocytes % (A) 9.5 %; MCH 34.1 pg (27.0-32.0); MCHC 34.9 g/dL (32.0-37.0); MCV 97.6 fL (80.0-97.0); Mean Platelet Volume 11.2 fL (9.5-12.2); Monocytes # (A) 0.92 X 10*3/uL (0.20-1.00); Monocytes % (A) 9.2 %; NRBC Per 100 WBC 0 /100 WBCS (0.0-0.0); Neutrophils # (A) 8.11 X 10*3/uL (1.80-7.70); Neutrophils % (A) 80.6 %; Platelet Count 206 X 10*3/uL (140-440); RBC 4.11 X 10*6/uL (4.40-5.60); WBC 10.05 X 10*3/uL (4.50-10.00)
[2022-06-02 10:39] LABS: African American GFR (CKD) 97.9 (60.0-200.0); Anion Gap 10.7 mmol/L (10.00-18.00); BUN/Creat Ratio 12.11 Ratio (12.00-20.00); Blood Urea Nitrogen 10.9 mg/dL (9.0-27.0); Calcium 8.9 mg/dL (8.7-10.3); Carbon Dioxide 22.3 mmol/L (20.0-27.5); Non-African American GFR(CKD) 84.4 (60.0-200.0); Potassium 4.1 mmol/L (3.5-5.5)
[2022-06-02] MEDS ORDERED: HYDROcodone/APAP 5-325MG 1 EACH TAB PO PRN (11:22)
[2022-06-02] MEDS ORDERED: MAGNESIUM CITRATE 296 ML BOTTLE PO ONE (11:22)
[2022-06-02] MEDS ORDERED: DOCUSATE 100 MG CAP PO SCH (11:45)
[2022-06-02] MEDS ORDERED: LACTULOSE 20 GM/30 ML CUP PO ONE (11:45)
[2022-06-02 12:09] LABS: Glucose,Whole Blood 118 mg/dL (70-110)
[2022-06-02] MEDS: SODIUM CHLORIDE 0.9% 1,000 ML IV SCH (13:17)
--- NOTE | 2022-06-02 13:26 | P.PN ---
Subjective Progress Note Date: 06/02/22 Principal diagnosis: This is a 72-year-old gentleman admitted with incarcerated left inguinal hernia and multiple other medical issues, scheduled for surgical repair today. Reports significant pain mid epigastric to left lower quadrant, minimal right lower quadrant pain. Continues on IV fluids and IV Dilaudid for pain management as per surgery. Reports "light BMs". Denies chest pain, palpitations or shortness of breath. Maintaining O2 sats in the high 90s on room air. 06/02/2022 maintained on IV fluid hydration .Open repair of left inguinal hernia, left orchiectomy postop day #1. Tolerated procedure well. Tolerating clear liquid diet. Blood sugars controlled, A1c 5.5. Reports mild nausea secondary to pain. No emesis. Denies bowel movement, passing flatus. Denies chest pain, palpitations or shortness of breath. Maintaining O2 sats in the mid 90s on room air. Afebrile, WBC within normal limits. Denies chest pain, palpitations or shortness of breath. Objective - Vital Signs Vital signs: Vital Signs Temp 98.4 F 06/02/22 07:00 Pulse 61 06/02/22 07:00 Resp 17 06/02/22 07:00 BP 119/67 06/02/22 07:00 Pulse Ox 96 06/02/22 07:00 FiO2 Intake & Output 06/01/22 06/02/22 06/02/22 18:59 06:59 18:59 Intake Total 1400 300 Output Total 10 500 Balance 1390 -200 Intake: IV 1400 Oral 300 Output: Urine 500 Estimated Blood Loss 10 Other: Voiding Method Toilet Toilet # Voids 2 1 - Exam PHYSICAL EXAM: VITAL SIGNS: As above GENERAL: Sitting up in bed, no acute distress HEENT: Conjunctivae normal. eyes normal. MMM. NECK: Supple, No JVD. CARDIOVASCULAR: S1, S2 regular, bradycardic, No murmur RESPIRATION: Breath sounds diminished in the bases. No rhonchi or crackles. No bronchial breathing. ABDOMEN: Soft, status post surgery, dressing clean dry and intact,hypoactive BS LEGS: No edema. no swelling PSYCHIATRY: Alert and oriented X3, mood and affect normal. NERVOUS SYSTEM: Cranial N 2-12 grossly normal. No focal deficits. Strength and sensation grossly intact. Skin: Warm and dry, no rash - Labs CBC & Chem 7: 06/02/22 06:16 06/02/22 06:16 Labs: Abnormal Lab Results - Last 24 Hours (Table) 06/01/22 06/02/22 06/02/22 Range/Units 20:36 03:30 06:16 WBC 10.05 H (4.50-10.00) X 10*3/uL RBC 4.11 L (4.40-5.60) X 10*6/uL MCV 97.6 H (80.0-97.0) fL MCH 34.1 H (27.0-32.0) pg Neutrophils # 8.11 H (1.80-7.70) X 10*3/uL Eosinophils # 0.01 L (0.04-0.35) X 10*3/uL POC Glucose (mg/dL) 137 H 143 H (70-110) mg/dL 06/02/22 Range/Units 12:06 WBC (4.50-10.00) X 10*3/uL RBC (4.40-5.60) X 10*6/uL MCV (80.0-97.0) fL MCH (27.0-32.0) pg Neutrophils # (1.80-7.70) X 10*3/uL Eosinophils # (0.04-0.35) X 10*3/uL POC Glucose (mg/dL) 118 H (70-110) mg/dL Assessment and Plan Assessment: Left incarcerated inguinal hernia,S/P Open repair of left inguinal hernia, left orchiectomy, pathology pending. Pain management, O.P. pain contract with Dr. Celestin Hypertension Hyperglycemia-hemoglobin A1c 5.5 Plan: Continue on current medication regime ,monitoring and symptomatic treatment. IV fluid hydration .Diet advancement Pain management as per surgery. Increase ambulation as tolerated. The impression and plan of care has been dictated as directed. : I performed a history and examination of this patient, discussed the same with the dictator. I agree with the dictator's note ,documented as a scribe. Any additional findings or plans will be noted.
--- NOTE | 2022-06-02 13:55 | P.DS ---
Providers Date of admission: 06/01/22 08:37 Expected date of discharge: 06/02/22 Attending physician: Moisés Couch Consults: 05/31/22 10:08 Consult Physician Routine Consulting Provider: Kwaku Smith Consult Reason/Comments: medical management Do you want consulting provider notified?: Yes Primary care physician: Kwaku Smith MD Hospital Course: Discharge diagnosis 1. Incarcerated left inguinal hernia with scrotal involvement status post open repair of left inguinal hernia and left orchiectomy Hospital course This is a 72-year-old male with a chronic incarcerated left inguinal hernia. He has had hernia for over 20 years. He is noted that the hernia has increased in size. He came into the emergency room was found to have a large incarcerated left inguinal hernia. Patient is status post open repair of left inguinal hernia with left orchiectomy. Patient tolerated surgery well. His pain is controlled. He is up and ambulating. He is urinating without difficulty. He is having flatus and small bowel movements. He is afebrile. Incision site is clean dry and intact. He is stable for discharge. Please refer to chart for any further details. Physician Jet Wiper note has been reviewed by physician. Signing provider agrees with the documented findings, assessment, and plan of care. Patient Condition at Discharge: Stable Plan - Discharge Summary New Discharge Prescriptions: New HYDROcodone/APAP 5-325MG [[place] 5-325] 1 tab PO Q6HR PRN 3 Days #12 tab PRN Reason: Pain Docusate [Colace] 100 mg PO BID #30 capsule Continue traZODone HCL [Desyrel] 50 mg PO HS PRN PRN Reason: Insomnia Atorvastatin [Lipitor] 10 mg PO HS Discontinued HYDROcodone/APAP 5-325MG [[place] 5-325] 1 tab PO DAILY Discharge Medication List Atorvastatin [Lipitor] 10 mg PO HS 05/29/22 [History] traZODone HCL [Desyrel] 50 mg PO HS PRN 05/29/22 [History] Docusate [Colace] 100 mg PO BID #30 capsule 06/02/22 [Rx] HYDROcodone/APAP 5-325MG [[place] 5-325] 1 tab PO Q6HR PRN 3 Days #12 tab 06/02/22 [Rx] Follow up Appointment(s)/Referral(s): Kwaku Smith MD [Primary Care Provider] - 1-2 Days [facility], [NON[facility]STAFF] - 1-2 Days Moisés Couch MD [STAFF PHYSICIAN] - 1 Week Activity/Diet/Wound Care/Special Instructions: No driving while taking [place] No lifting over 10 pounds Shower daily. No soaking or tub baths for 2 weeks Very light activity until you are reevaluated at your follow up appointment with your surgeon Discharge/Stand Alone Forms: Who Do I Call?, Community Resources, Help In The Home, Personal Alining Inspector Discharge Disposition: HOME WITH HOME HEALTH SERVICES
[2022-06-02] MEDS ORDERED: INSULIN ASPART (NovoLOG) 100 UNIT/ML VIAL SQ SCH (18:00)
== END 2022-06-02 15:01 | disposition home health service (06) ==
LOC: EC 11:04 → 6NMEDSUR 15:13 → OBSVTOIN 06-01 08:37 → INTOOBSV 06-01 08:37 → UNDODISIN 06-02 15:01
PROVIDERS: ADMIT Surgery; ATTEND Surgery
DX: K40.30 Unilateral inguinal hernia, with obstruction, without gangrene, not specified as recurrent (principal); N43.3 Hydrocele, unspecified; N32.3 Diverticulum of bladder; F17.200 Nicotine dependence, unspecified, uncomplicated; E78.5 Hyperlipidemia, unspecified; G47.00 Insomnia, unspecified; R73.9 Hyperglycemia, unspecified; I10 Essential (primary) hypertension; Z79.899 Other long term (current) drug therapy
CPT/HCPCS: 96376 ×5; 96361 ×5; 96375 ×4; 96360; 96365; 99285; 36415; 88305; 80053; 80048; 83605; 83690; 85025 ×2; 83036; 74177; 49507; 54520; G0378 ×5; C1781; J2543; J2250; J0330; J2270; J0360; J1644; J1100; J2710; J2405; J3010; J1885; J2704; C9113; J1170 ×5; Q9967; J2001

== ENCOUNTER 2022-06-11 11:59 | Emergency (ER) | payer MEDICARE, OTHER ==
[2022-06-11 16:51] LABS: Basophils # (A) 0.1 k/uL (0-0.2); Basophils % (A) 1 %; Eosinophils # (A) 0.2 k/uL (0-0.7); Eosinophils % (A) 2 %; HCT 37.3 % (39.0-53.0); Lymphocytes # (A) 0.9 k/uL (1.0-4.8); Lymphocytes % (A) 8 %; MCH 33.4 pg (25.0-35.0); MCHC 33.1 g/dL (31.0-37.0); MCV 101.2 fL (80.0-100.0); Mean Platelet Volume 7.7; Monocytes # (A) 0.6 k/uL (0-1.0); Monocytes % (A) 5 %; Neutrophils # (A) 9.5 k/uL (1.3-7.7); Neutrophils % (A) 83 %; Platelet Count 527 k/uL (150-450); RBC 3.69 m/uL (4.30-5.90); RDW 12.5 % (11.5-15.5); WBC 11.4 k/uL (3.8-10.6)
[2022-06-11] MEDS ORDERED: SODIUM CHLORIDE 0.9% 1,000 ML IV STA (16:51)
[2022-06-11 16:54] LABS: HGB 12.3 gm/dL (13.0-17.5)
[2022-06-11 17:07] LABS: Calcium 8.9 mg/dL (8.4-10.2); Total Protein 7.1 g/dL (6.3-8.2)
[2022-06-11 17:15] LABS: Potassium 4.8 mmol/L (3.5-5.1)
[2022-06-11 18:33] VITALS: BP 114/62; PULSE 72; RESP 16; TEMP 98.5
--- NOTE | 2022-06-11 18:52 | CT ---
EXAMINATION TYPE: CT abdomen pelvis w con DATE OF EXAM: 06/11/2022 COMPARISON: 05/29/2022 HISTORY: LLQ pain, h/o hernia sx, pain CT DLP: 687.7 mGycm Automated exposure control for dose reduction was used. TECHNIQUE: Helical acquisition of images was performed from the lung bases through the pelvis. CONTRAST: Performed without Oral Contrast and with IV Contrast, patient injected with 100 mL of Isovue 300. FINDINGS: LUNG BASES: No significant abnormality is appreciated. LIVER/GB: No significant abnormality is appreciated. PANCREAS: No significant abnormality is seen. SPLEEN: No significant abnormality is seen. ADRENALS: No acute abnormality is seen. Stable mild thickening of the bilateral adrenal glands. KIDNEYS: No significant abnormality is seen. Few simple appearing bilateral renal cysts measuring up to 1 cm. FREE AIR: No free air is visualized. RETROPERITONEAL ADENOPATHY: None visualized REPRODUCTIVE ORGANS: No significant abnormality is seen URINARY BLADDER: No significant abnormality is seen. PELVIC ADENOPATHY: None visualized. OSSEOUS STRUCTURES: No significant abnormality is seen. BOWEL: Interval left inguinal hernia repair. Moderate sized fluid structure in the left lower quadra nt. Trace amount of fluid and air is seen within the left anterior pelvic subcutaneous soft tissues at the surgical site. Skin danilo are in place. No significant pneumoperitoneum. Normal appendix. OTHER: Stable 2.2 cm right urinary bladder diverticulum. Colonic diverticulosis without acute diverti culitis. Moderate to advanced atherosclerotic disease. IMPRESSION: INTERVAL LEFT INGUINAL HERNIA REPAIR. MODERATE SIZED FLUID STRUCTURE IN THE ABDOMINAL LEFT LOWER QUADRANT, CONCERNING FOR INTERNAL HERNIA. DIFFICULT TO EXCLUDE BOWEL LOOPS VERSUS SIMPLE FLUID WITHIN THE CONCERNED INTERNAL HERNIA. NO OVERT B OWEL OBSTRUCTION. CHRONIC AND INCIDENTAL FINDINGS ABOVE.
[2022-06-11] MEDS ORDERED: HYDROmorphone 0.5 MG/0.5 ML SYRINGE IVP STA (18:58)
--- NOTE | 2022-06-11 18:58 | ED ---
General Adult HPI - General Chief complaint: Recheck/Abnormal Lab/Rx Stated complaint: post op surgery complication - hernia surgery Time Seen by Provider: 06/11/22 15:34 Source: patient Mode of arrival: ambulatory - History of Present Illness Initial comments: She has a 72-year-old male with history of incarcerated hernia status post repair on June 01 who presents to the emergency department with a chief complaint of drainage from wound. Patient states he noticed that drainage yesterday. Describes it as a thin liquid that is light red in color. States he hasn't been very observant of the wound therefore is not sure if there is any new redness or swelling around the wound. States his abdominal pain has been improving since surgery while taking [place]. Denies fever, chills, nausea, or vomiting. - Related Data Home Medications Medication Instructions Recorded Confirmed Atorvastatin [Lipitor] 10 mg PO HS 05/29/22 06/11/22 traZODone HCL [Desyrel] 50 mg PO HS PRN 05/29/22 06/11/22 Previous Rx's Medication Instructions Recorded Docusate [Colace] 100 mg PO BID #30 capsule 06/02/22 HYDROcodone/APAP 5-325MG [[place] 1 tab PO Q6HR PRN 3 Days #12 tab 06/02/22 5-325] Amoxic-Pot Clav 875-125Mg 1 tab PO BID 10 Days #20 tab 06/11/22 [Augmentin 875-125] Allergies Allergy/AdvReac Type Severity Reaction Status Date / Time No Known Allergies Allergy Verified 06/11/22 18:24 Review of Systems ROS Statement: Those systems with pertinent positive or pertinent negative responses have been documented in the HPI. ROS Other: All systems not noted in ROS Statement are negative. Past Medical History Past Medical History: No Reported History History of Any Multi-Drug Resistant Organisms: None Reported Past Surgical History: Hernia Repair Additional Past Surgical History / Comment(s): open reduction of right ankle fracture. Past Psychological History: No Psychological Hx Reported Smoking Status: Current some day smoker Past Alcohol Use History: Occasional Past Drug Use History: None Reported General Exam General appearance: alert, in no apparent distress Head exam: Present: atraumatic, normocephalic, normal inspection Respiratory exam: Present: normal lung sounds bilaterally. Absent: respiratory distress, wheezes, rales, rhonchi, stridor Cardiovascular Exam: Present: regular rate, normal rhythm, normal heart sounds. Absent: systolic murmur, diastolic murmur, rubs, gallop, clicks GI/Abdominal exam: Present: soft, normal bowel sounds, other (stapled surgical incision in left lower quadrant. Mild erythema above incision site. Moderate swelling below incision site and groin region. No fluctuance. Mild tenderness t o palpation. Serous drainage without purulence. ). Absent: distended, guarding, rebound, rigid Course Vital Signs 06/11/22 06/11/22 06/11/22 12:04 16:23 17:58 Temperature 97.3 F L 97.1 F L 97.6 F Pulse Rate 73 58 L 94 Respiratory 16 16 18 Rate Blood Pressure 130/72 130/61 133/71 O2 Sat by Pulse 98 98 96 Oximetry 06/11/22 18:32 Temperature 98.5 F Pulse Rate 72 Respiratory 16 Rate Blood Pressure 114/62 O2 Sat by Pulse 95 Oximetry Medical Decision Making - Medical Decision Making This is a 72-year-old male who presents due to drainage from surgical site incision. Thorough history and examination were performed. Patient well- appearing. Afebrile. There is a stapled surgical incision in left lower quadrant. Mild erythema above incision site. Moderate swelling below incision site and groin region. No fluctuance. Mild tenderness to palpation. Serous drainage without purulence. Laboratory studies obtained and significant for mild leukocytosis at 11.4. Platelets elevated at 527. CT shows moderate-sized fluid structure in the left lower quadrant, suspicion for simple fluid versus bowel loops. Case discussed with Dr. June who recommended outpatient antibiotics and close follow-up in the office. Patient given first dose of Augmentin in the emergency department. Patient not sure when his follow-up appointment is. He will call the office and try to have a follow-up scheduled as soon as possible. Return parameters discussed. Dr. Nichols is my attending. - Lab Data Result diagrams: 06/11/22 16:30 06/11/22 16:30 Lab Results 06/11/22 06/11/22 Range/Units 16:30 16:30 WBC 11.4 H (3.8-10.6) k/uL RBC 3.69 L (4.30-5.90) m/uL Hgb 12.3 L D (13.0-17.5) gm/dL Hct 37.3 L (39.0-53.0) % MCV 101.2 H (80.0-100.0) fL MCH 33.4 (25.0-35.0) pg MCHC 33.1 (31.0-37.0) g/dL RDW 12.5 (11.5-15.5) % Plt Count 527 H D (150-450) k/uL MPV 7.7 Neutrophils % 83 % Lymphocytes % 8 % Monocytes % 5 % Eosinophils % 2 % Basophils % 1 % Neutrophils # 9.5 H (1.3-7.7) k/uL Lymphocytes # 0.9 L (1.0-4.8) k/uL Monocytes # 0.6 (0-1.0) k/uL Eosinophils # 0.2 (0-0.7) k/uL Basophils # 0.1 (0-0.2) k/uL Sodium 134 L (137-145) mmol/L Potassium 4.8 (3.5-5.1) mmol/L Chloride 98 (98-107) mmol/L Carbon Dioxide 23 (22-30) mmol/L Anion Gap 13 mmol/L BUN 21 H (9-20) mg/dL Creatinine 1.01 (0.66-1.25) mg/dL Est GFR (CKD-EPI)AfAm 85 (>60 ml/min/1.73 sqM) Est GFR (CKD-EPI)NonAf 74 (>60 ml/min/1.73 sqM) Glucose 98 (74-99) mg/dL Calcium 8.9 (8.4-10.2) mg/dL Total Bilirubin 1.0 (0.2-1.3) mg/dL AST 32 (17-59) U/L ALT 16 (4-49) U/L Alkaline Phosphatase 123 (38-126) U/L Total Protein 7.1 (6.3-8.2) g/dL Albumin 4.0 (3.5-5.0) g/dL Disposition Clinical Impression: Draining postoperative wound, Leukocytosis, Hx of inguinal hernia surgery Disposition: HOME SELF-CARE Condition: Good Instructions (If sedation given, give patient instructions): Surgical Site Infections (ED) Additional Instructions: Take antibiotic as directed. The first dose will be in the morning. Observe the wound closely. Please return if you experience any new, concerning, or worsening symptoms, including but not limited to increased redness, swelling, drainage, or pain in the area. Please call Dr. Couch office in the morning and let them know you were in the emergency department and there is some concern for infection. See if they can evaluate you in the office as soon as possible, preferably by this Wednesday. Continue Kersey for pain. Prescriptions: Amoxic-Pot Clav 875-125Mg [Augmentin 875-125] 1 tab PO BID 10 Days #20 tab Is patient prescribed a controlled substance at d/c from ED?: No Referrals: Kwaku Smith MD [Primary Care Provider] - 1-2 days Time of Disposition: 19:15
[2022-06-11] MEDS ORDERED: AMOXIC-POT CLAV 875-125MG 1 EACH TAB PO STA (19:09)
== END 2022-06-11 19:41 | disposition home or self-care (01) ==
LOC: EC 11:59
DX: K91.89 Other postprocedural complications and disorders of digestive system (principal); D72.829 Elevated white blood cell count, unspecified; F17.200 Nicotine dependence, unspecified, uncomplicated
CPT/HCPCS: 36415; 80053; 85025; 74177; 99284; 96374; 96361; J1170; Q9967

== ENCOUNTER 2022-07-26 12:10 | Emergency (ER) | payer MEDICARE ==
[2022-07-26] MEDS ORDERED: metroNIDAZOLE 500 MG TAB PO STA (13:06)
[2022-07-26] MEDS ORDERED: cefTRIAXone 250 MG VIAL IM STA (13:08)
[2022-07-26] MEDS ORDERED: DOXYCYCLINE 100 MG CAP PO STA (13:09)
--- NOTE | 2022-07-26 13:12 | ED ---
General Adult HPI - General Chief complaint: Urogenital Stated complaint: Urogenital Time Seen by Provider: 07/26/22 12:52 Source: patient Mode of arrival: ambulatory Limitations: no limitations - History of Present Illness Initial comments: Patient is a 72-year-old male who presents to the emergency department with a chief complaint of penile discharge. Patient reports 2 days of yellow penile discharge and penile pain. He denies fever, chills, penile lesions, burning with urination, increased urinary frequency, increased urinary urgency, abdominal pain, nausea, vomiting. Patient reports unprotected sexual intercourse with a new partner on 07/18. He is concerned he has a sexual transmitted infection. Denies history of urinary tract infection. - Related Data Home Medications Medication Instructions Recorded Confirmed Atorvastatin [Lipitor] 10 mg PO HS 05/29/22 06/11/22 traZODone HCL [Desyrel] 50 mg PO HS PRN 05/29/22 06/11/22 Previous Rx's Medication Instructions Recorded Docusate [Colace] 100 mg PO BID #30 capsule 06/02/22 HYDROcodone/APAP 5-325MG [[place] 1 tab PO Q6HR PRN 3 Days #12 tab 06/02/22 5-325] Amoxic-Pot Clav 875-125Mg 1 tab PO BID 10 Days #20 tab 06/11/22 [Augmentin 875-125] Doxycycline [Vibramycin] 100 mg PO BID 7 Days #14 capsule 07/26/22 Allergies Allergy/AdvReac Type Severity Reaction Status Date / Time No Known Allergies Allergy Verified 07/26/22 12:49 Review of Systems ROS Statement: Those systems with pertinent positive or pertinent negative responses have been documented in the HPI. ROS Other: All systems not noted in ROS Statement are negative. Past Medical History Past Medical History: No Reported History History of Any Multi-Drug Resistant Organisms: None Reported Past Surgical History: Hernia Repair Additional Past Surgical History / Comment(s): open reduction of right ankle fracture. Past Psychological History: No Psychological Hx Reported Smoking Status: Current some day smoker Past Alcohol Use History: None Reported Past Drug Use History: None Reported General Exam Limitations: no limitations General appearance: alert, in no apparent distress Head exam: Present: atraumatic, normocephalic, normal inspection Eye exam: Present: normal appearance, PERRL, EOMI. Absent: scleral icterus, conjunctival injection, periorbital swelling Respiratory exam: Present: normal lung sounds bilaterally. Absent: respiratory distress, wheezes, rales, rhonchi, stridor Cardiovascular Exam: Present: regular rate, normal rhythm, normal heart sounds. Absent: systolic murmur, diastolic murmur, rubs, gallop, clicks GI/Abdominal exam: Present: soft, normal bowel sounds. Absent: distended, tenderness, guarding, rebound, rigid Back exam: Absent: CVA tenderness (R), CVA tenderness (L) Neurological exam: Present: alert, oriented X3, CN II-XII intact Psychiatric exam: Present: normal affect, normal mood Skin exam: Present: warm, dry, intact, normal color. Absent: rash Course Vital Signs 07/26/22 07/26/22 07/26/22 12:44 14:04 15:11 Temperature 98.2 F 98.0 F 98.4 F Pulse Rate 62 54 L 58 L Respiratory 18 18 17 Rate Blood Pressure 200/92 197/91 185/98 O2 Sat by Pulse 97 96 98 Oximetry Medical Decision Making - Medical Decision Making This is a 72-year-old male presenting with possible sexually transmitted infection. Patient tested for gonorrhea, chlamydia, Trichomonas. Results pending. He will be empirically treated. Rocephin, Flagyl, doxycycline given the emergency Department. Initial blood pressure 200/92. Patient denies history of high blood pressure. Does not check his blood pressure at home. Based on previous documentation, this is unusual for patient. Patient denies headache, double vision, blurry vision, chest pain, shortness of breath. Blood pressure remained elevated in the emergency department. Patient was given clonidine with adequate blood pressure response. Patient we discharged with doxycycline for possible chlamydia. He will follow up with his primary care provider regarding elevated blood pressure in the emergency department. Dr. Lujan is my attending. . - Lab Data Lab Results 07/26/22 Range/Units 13:00 Urine Color Yellow Urine Appearance Clear (Clear) Urine pH 7.0 (5.0-8.0) Ur Specific [place] 1.015 (1.001-1.035) Urine Protein Negative (Negative) Urine Glucose (UA) Negative (Negative) Urine Ketones Negative (Negative) Urine Blood Negative (Negative) Urine Nitrite Negative (Negative) Urine Bilirubin Negative (Negative) Urine Urobilinogen <2.0 (<2.0) mg/dL Ur Leukocyte Esterase Large H (Negative) Urine RBC 4 (0-5) /hpf Urine WBC 37 H (0-5) /hpf Urine Mucus Rare H (None) /hpf Disposition Clinical Impression: Penile discharge, Burning with urination, High blood pressure Disposition: HOME SELF-CARE Condition: Good Instructions (If sedation given, give patient instructions): Sexually Transmitted Diseases (ED), Male Condom Use (ED), Safe Sex Practices (ED) Additional Instructions: Please take medication as directed. These medications treat for possible gonorrhea, Chlamydia, and Trichomonas. You will receive a call if the results are positive in the next 2-3 days. Please do not drink alcohol the next 24 hours as one of the medications you received in the emergency department, Flagyl, can cause major stomach upset if consumed with alcohol. It is important to use condoms during sexual intercourse. Follow-up with primary care provider in one to 2 days. Please talk with them about elevated blood pressure in the emergency department. Initial blood pressure today was 200/92. Repeat 197/91. Return to the emergency department if you experience new, concerning, or worsening symptoms. Prescriptions: Doxycycline [Vibramycin] 100 mg PO BID 7 Days #14 capsule Is patient prescribed a controlled substance at d/c from ED?: No Referrals: Kwaku Smith MD [STAFF PHYSICIAN] - 1-2 days Time of Disposition: 13:12
[2022-07-26 13:39] LABS: Appearance,Urine Clear (Clear); Bilirubin,Urine Negative (Negative); Blood,Urine Negative (Negative); Color,Urine Yellow; Glucose,Urine (UA) Negative (Negative); Ketones,Urine Negative (Negative); Leukocyte Esterase,Urine Large (Negative); Mucus,Urine Rare /hpf; Nitrite,Urine Negative (Negative); Protein,Urine Negative (Negative); RBC,Urine 4 /hpf (0-5); Specific Gravity,Urine 1.015 (1.001-1.035); Urobilinogen,Urine <2.0 mg/dL (<2.0); WBC,Urine 37 /hpf (0-5)
[2022-07-26] MEDS ORDERED: cloNIDine HCL 0.1 MG TAB PO STA (14:07)
[2022-07-26 15:12] VITALS: BP 185/98; PULSE 58; RESP 17; TEMP 98.4
== END 2022-07-26 15:32 | disposition home or self-care (01) ==
LOC: EC 12:10
DX: I10 Essential (primary) hypertension (principal); R30.9 Painful micturition, unspecified; R36.9 Urethral discharge, unspecified; F17.200 Nicotine dependence, unspecified, uncomplicated
CPT/HCPCS: 81001; 87491; 87591; 87086; 99283; 96372; J0696

== ENCOUNTER → 2022-08-07 | Outpatient (CLI) | payer MEDICARE ==
--- NOTE | 2022-08-08 01:23 | MR ---
EXAMINATION TYPE: MR cervical spine wo/w con DATE OF EXAM: 08/07/2022 COMPARISON: None HISTORY: Neck pain that radiates into both arms to fingers. CONTRAST: Standard multiplanar, multisequence MRI departmental protocol images were obtained without contrast a nd with 6 mL intravenous Gadavist gadolinium contrast. The cervical vertebrae have fairly normal alignment. There is mild disc space narrowing from C3 to C7 . There is minimal disc bulging. No compression fracture. Cervical spinal cord has normal signal karen yola. No edema. There is no cervical paraspinal mass. No evidence of any significant cervical spinal s tenosis. Spinal canal measures 8 mm at C3-4 which is the narrowest level. There is no pathologic enha ncement. The brainstem is intact. IMPRESSION: Multilevel cervical spondylotic changes and posterior mild disc bulging. No fracture seen.
== END | disposition home or self-care (01) ==
LOC: RADMRIMAIN 19:28
PROVIDERS: ATTEND Psychiatry & Neurology Neurology
DX: M47.812 Spondylosis without myelopathy or radiculopathy, cervical region (principal); M50.323 Other cervical disc degeneration at C6-C7 level
CPT/HCPCS: 72156; A9585

== ENCOUNTER → 2025-04-18 | Outpatient (CLI) | payer MEDICARE ==
--- NOTE | 2025-04-18 14:55 | CT ---
EXAMINATION TYPE: CT chest wo con DATE OF EXAM: 04/18/2025 COMPARISON: None CLINICAL INDICATION: Male, 75 years old with history of Z77.090 CONTACT WITH AND (SUSPECTED) EXPOSURE TO A; [facility], Cough, ERIC TECHNIQUE: CT scan of the thorax is performed without IV contrast. CT DLP: 584.[address] CTDI: mGy Automated exposure control for dose reduction was used. FINDINGS: There is no suspicious lung mass or nodule. There is no airspace consolidation or abnormal interstitial density. There is no honeycombing, ground glass opacity or bronchiectasis. There is no pleural effusion or pneumothorax. There is mild dilatation of the ascending thoracic aorta which is 4 cm. There is no mediastinal, willow r or axillary adenopathy. Limited scanning through the upper abdomen reveals no gross abnormality. IMPRESSION: 1. No evidence of interstitial lung disease. 2. No acute cardiac or lung disease. 3. 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 Follow-up recommendations for incidental pulmonary nodules are per [employer]?s [place] [employer] or [place] [employer]. [facility], , 04/18/2025 2:53 PM
== END | disposition home or self-care (01) ==
LOC: RADCTMAIN 14:20
PROVIDERS: ATTEND Family Medicine
DX: I71.20 Thoracic aortic aneurysm, without rupture, unspecified (principal); Z77.090 Contact with and (suspected) exposure to asbestos
CPT/HCPCS: 71250